=== PATIENT | male | born 1955 | race Caucasian/White ===

== ENCOUNTER 2021-05-10 11:23 | Inpatient (IN) ==
[2021-05-10] MEDS ORDERED: SODIUM CHLORIDE 0.9% 1000ML 2,000 ML IV ONE ×2 (11:27→11:42)
[2021-05-10 11:55] LABS: iSTAT Blood Urea Nitrogen 44 mg/dl (7-18); iSTAT Carbon Dioxide 7 mmol/L (24-31); iSTAT Chloride 104 mmol/L (101-112); iSTAT Creatinine 2.4 mg/dl (0.6-1.3); iSTAT Glucose > 700 mg/dl (70-99); iSTAT Hematocrit 44 % (42-52); iSTAT Ionized Calcium 1.42 mmol/l (1.12-1.32); iSTAT Sodium 132 mmol/L (135-144)
--- NOTE | 2021-05-10 11:56 | XRay Report ---
SINGLE VIEW CHEST CLINICAL HISTORY: Fall. FINDINGS: An AP, portable, supine chest radiographs are obtained. No prior studies are available for comparison at the time of dictation. The cardiomediastinal silhouette is unremarkable. Pneumomediasti num is observed. Bibasilar atelectasis is noted. No airspace consolidation or large pleural effusion is identified. No definite pneumothorax is seen. There are age indeterminant left-sided rib fractures which may be acute. IMPRESSION: 1. There is pneumomediastinum. 2. No definite pneumothorax is seen. 3. Age-indeterminate left-sided rib fractures may be acute. 4. No airspace consolidation or large pleural effusion is identified. ACT 112: Negative or not required by law. Electronically signed by: Zi Guido M.D. 05/10/2021 11:55 AM
[2021-05-10 11:57] LABS: Base Excess VBG -27.4 mEq/L; Oxygen Saturation VBG 78.3 %; pH VBG 6.88 (7.36-7.41)
--- NOTE | 2021-05-10 11:57 | XRay Report ---
XR pelvis 1-2V routine HISTORY: 65 years-old Male found down ams acute pelvic pain status post fall COMPARISON: None TECHNIQUE: Portable AP view of the pelvis FINDINGS: Mild to moderate osteoarthritis of the hips. No acute fracture, dislocation or avascular necrosis. Va scular calcifications. Degenerative changes of the imaged lumbar spine. IMPRESSION: No acute fracture. ACT 112: Negative or not required by law. The above report was generated using voice recognition software. It may contain grammatical, syntax o r spelling errors. Electronically signed by: Luigi Corcoran M.D. 05/10/2021 11:56 AM
[2021-05-10] MEDS ORDERED: SODIUM BICARB 8.4% INJ 50 MEQ/50 ML SYR IV STA ×2 (11:59→13:03)
[2021-05-10] MEDS ORDERED: CEFEPIME 2,000 MG/20 ML VIAL IV STA (12:01)
[2021-05-10] MEDS ORDERED: VANCOMYCIN HCL 1,250 MG in SODIUM CHLORIDE 0.9% 500 ML IV ONE (12:01)
[2021-05-10] MEDS ORDERED: VANCOMYCIN CONSULT ACTIVE PRN ×2 (12:01→15:33)
[2021-05-10 12:03] LABS: INR 1.1 (0.9-1.1); Partial Thromboplastin Ratio 1.5; Partial Thromboplastin Time 38.2 Seconds (21.0-31.0); Prothrombin Time 10.8 Seconds (9.0-12.0)
--- NOTE | 2021-05-10 12:05 | CT Scan Report ---
CT head/brain wo con CLINICAL HISTORY: 65 years-old Male with found down ams. Acutely altered mental status with fall TECHNIQUE: Multiple axial CT images of the head were obtained without contrast. A dose lowering tech nique was utilized adhering to the principles of ALARA. CT DOSE: 1780.74 mGycm COMPARISON: CT cervical spine of same day FINDINGS: Motion degraded exam. No acute intracranial hemorrhage, midline shift, intracranial mass, hydrocephal us, territorial ischemia or abnormal extra-axial collection. The lucent changes of the brain parenchy ma. The calvarium is intact. The paranasal sinuses, mastoid air cells, and middle ear cavities are clear . IMPRESSION: Motion degraded exam. No acute intracranial abnormality or calvarial fracture. ACT 112: Negative or not required by law. The above report was generated using voice recognition software. It may contain grammatical, syntax o r spelling errors. Electronically signed by: Luigi Corcoran M.D. 05/10/2021 12:04 PM
[2021-05-10 12:06] LABS: Chloride 94 mmol/L (98-107); Potassium 4.9 mmol/L (3.5-5.1); Sodium 130 mmol/L (136-145)
--- NOTE | 2021-05-10 12:09 | CT Scan Report ---
CT cervical spine wo con CLINICAL HISTORY: 65 years-old Male with found down ams. Acute neck injury status post fall COMPARISON: Head CT of same day.. TECHNIQUE: Multiple axial CT images of the cervical spine were obtained without contrast. A dose low ering technique was utilized adhering to the principles of ALARA. FINDINGS: Mild mid cervical dextroscoliosis. Multilevel intervertebral disc space narrowing, severe a t C6 or C7. 3 mm anterolisthesis C4 on C5 and C7 on T1 is likely secondary to chronic facet arthrosis . There is severe multilevel facet arthrosis with degenerative bony fusion of the right C2-C3 facets. Multilevel neural foraminal narrowing. No acute fracture or subluxation. Lung apices are clear. Calcified plaque of the carotid bulbs. No prevertebral edema. IMPRESSION: No acute cervical spine fracture or subluxation. ACT 112: Negative or not required by law. The above report was generated using voice recognition software. It may contain grammatical, syntax o r spelling errors. Electronically signed by: Luigi Corcoran M.D. 05/10/2021 12:08 PM
[2021-05-10] MEDS ORDERED: CARBOHYDRATES FOR HYPOGLYCEMIA PO PRN (12:15)
[2021-05-10] MEDS ORDERED: GLUCAGON FOR INJ 1 MG VIAL IM PRN (12:15)
[2021-05-10] MEDS ORDERED: GLUCOSE 40% GEL 15 GM TUBE PO PRN (12:15)
[2021-05-10] MEDS ORDERED: GLUCOSE 10 TABS/TUBE PO PRN (12:15)
[2021-05-10] MEDS ORDERED: DEXTROSE 50% 50 ML SYRINGE IV PRN (12:15)
[2021-05-10 12:25] LABS: Alanine Aminotransferase 29 (12-78); Albumin Level 3.9 gm/dl (3.4-5.0); Alkaline Phosphatase 118 U/L (45-117); Aspartate Aminotransferase 34 U/L (15-37); BUN Creatinine Ratio 13.7 (10-20); Bilirubin Direct 0.2 mg/dl (0-0.2); Bilirubin,Total 0.5 mg/dl (0.2-1); Blood Urea Nitrogen 42 mg/dl (7-18); Calcium 9.8 mg/dl (8.5-10.1); Carbon Dioxide 5 mmol/L (21-32); Creatine Kinase 280 U/L (39-308); Est GFR (African American) 23.6 ml/min; Est GFR (Non-African American) 20.3 ml/min; Glucose 1134 mg/dl (70-99); Magnesium 3.3 mg/dl (1.8-2.4); Total Protein 7.9 gm/dl (6.4-8.2); Troponin I < 0.015 ng/ml (0-0.045)
[2021-05-10] MEDS ORDERED: NovoLIN-R BOLUS FROM BAG IV ONE (12:30)
[2021-05-10] MEDS: INSULIN REGULAR 250 UNITS in SODIUM CHLORIDE 0.9% 247.5 ML IV SCH (12:32)
[2021-05-10] MEDS ORDERED: DEXTROSE 5% IV STA (12:36)
[2021-05-10] MEDS ORDERED: FOMEPIZOLE IV STA (12:36)
[2021-05-10 12:41] LABS: Eosinophils # (auto) 0.01 K/uL (0-0.5); Eosinophils % (auto) 0.1 %; Hematocrit (blood only) 44.6 % (42-52); Hemoglobin 14.4 g/dL (14.0-18.0); Immature Granulocytes # (auto) 0.03 K/uL (0.00-0.02); Immature Granulocytes % (auto) 0.3 %; Lymphocytes # (auto) 1.21 K/uL (1.2-3.4); Lymphocytes % (auto) 12.3 %; Mean Corpuscular Hemoglobin 31.6 pg (25-34); Mean Corpuscular Hgb Conc 32.3 g/dL (32-36); Monocytes # (auto) 1.52 K/uL (0.11-0.59); Monocytes % (auto) 15.5 %; Neutrophils # (auto) 7.04 K/uL (1.4-6.5); Neutrophils % (auto) 71.8 %; Platelet Count 131 K/uL (130-400); Red Blood Count 4.55 M/uL (4.7-6.1); White Blood Count 9.81 K/uL (4.8-10.8)
[2021-05-10 12:41] LABS: Appearance Urine Clear (Clear); Bacteria Urine Automated Negative (Negative); Bilirubin Urine Negative (Negative); Blood Urine 2+ (Negative); Color Urine Yellow; Epithelial Cell Urine Auto >30 /lpf (0-5); Glucose Urine UA 3+ (Negative); Ketones Urine 2+ (Negative); Leukocyte Esterase Urine Negative (Negative); Nitrite Urine Negative (Negative); Protein Urine 2+ (Negative); Specific Gravity Urine 1.024 (1.000-1.030); Urobilinogen Urine Negative (Negative)
[2021-05-10] MEDS ORDERED: LORazepam 1 MG/2 ML VIAL IV STA (12:41)
--- NOTE | 2021-05-10 12:42 | CT Scan Report ---
ABDOMEN AND PELVIS CT WITHOUT CONTRAST CT DOSE: 458.44 mGycm HISTORY: Acute abdominal trauma. The patient was found down and has acutely altered mental status. f ound down ams TECHNIQUE: Multiaxial CT images of the abdomen and pelvis were performed without contrast. A dose lo wering technique was utilized adhering to the principles of ALARA. COMPARISON STUDY: Chest radiograph of same day FINDINGS: Nondependent mild bibasilar groundglass densities of the lower lobes. Limited study secondary to uppe r extremity positioning, lack of significant intra-abdominal fat and lack of contrast. Artifact from telemetry leads also limits the study. The unenhanced spleen,, pancreas, adrenal glands and gallbladd er are unremarkable. There are several hepatic cysts measuring up to 11 mm. Subcentimeter hepatic hyp odensities are too small to characterize. There are least 3 nonobstructing calculi of the right kidney which measure up to 4 mm. 2 mm calculus of the inferior pole left kidney. No hydronephrosis or ureteral calculi identified. Mild to moderate circumferential wall thickening of the urinary bladder with prostamegaly. Atherosclerosis of the aort a. No adenopathy identified. Healing subacute appearing minimally displaced fracture of the anterolat eral left seventh and eighth ribs. IMPRESSION: 1. Limited exam as above. 2. Nondependent bibasilar groundglass densities are suspicious for an infectious or inflammatory pneu monitis. Atelectasis considered less likely. 3. Nonobstructing bilateral nephrolithiasis. 4. Healing subacute fractures of the anterolateral left seventh and eighth ribs. 5. Prostamegaly with suggested chronic bladder outlet obstruction. 6. Additional findings as above. ACT 112: Negative or not required by law. The above report was generated using voice recognition software. It may contain grammatical, syntax o r spelling errors. Electronically signed by: Luigi Corcoran M.D. 05/10/2021 12:41 PM
[2021-05-10 12:43] LABS: Echinocytes 1+
[2021-05-10] MEDS ORDERED: MULTI-VITAMIN INFUSION 10 ML, THIAMINE HCL 100 MG, FOLIC ACID 1 MG in SODIUM CHLORIDE 0... IV ONE (12:45)
[2021-05-10 12:59] LABS: Base Excess VBG -25.5 mEq/L; Oxygen Saturation VBG 61.3 %; pH VBG 6.91 (7.36-7.41)
[2021-05-10 13:06] LABS: Influenza A virus by PCR Negative (Neg); Influenza B virus by PCR Negative (Neg); RSV by PCR Negative (Neg)
[2021-05-10 13:27] LABS: Acetaminophen < 2 ug/ml (10-30)
[2021-05-10 13:28] LABS: Salicylate 6.9 mg/dl (2.8-20)
[2021-05-10 13:36] LABS: SARS CoV2 RNA(COVID-19) InHosp POSITIVE (Negative)
--- NOTE | 2021-05-10 13:37 | Emergency Department Note ---
History of Present Illness General Chief complaint: Hyperglycemia Time Seen by Provider: 05/10/21 11:27 Source: EMS History of Present Illness Provider complaint: Altered mental status hyperglycemia Onset (ago): unknown 65-year-old male presents emergency department via EMS for altered mental status and hypoglycemia. Per EMS, the patient called EMS after finding him on the ground at 0900 after she returned home from work. EMS reports they arrived and his vitals were stable and the patient was tachypneic and having a high blood s ugar. He states he is a ioe-mjlnmlc-mxmgnmhhk diabetic. Home Medications Medication Instructions Recorded Confirmed Type atorvastatin 40 mg tablet 40 mg PO DAILY 05/10/21 05/10/21 History glipizide 5 mg tablet, extended 5 mg PO DAILY 05/10/21 05/10/21 History release 24 hr metformin 500 mg tablet,extended 1,000 mg PO DAILY 05/10/21 05/10/21 History release 24 hr Allergies Allergy/AdvReac Type Severity Reaction Status Date / Time No Known Allergies Allergy Verified 05/10/21 13:25 Past Med/Surg History Medical History (Updated 05/10/21 @ 14:17 by Aminata Hinojosa PA-C) Diabetes No pertinent family history Surgical History (Updated 05/10/21 @ 13:39 by Wolf Garcia) No pertinent past surgical history Social History Smoking Status: Unknown if ever smoked Review of Systems Unobtainable due to reduced consciousness Physical Exam Vital Signs Vital Signs - 24 hr 05/10/21 11:25 05/10/21 11:31 05/10/21 11:45 Temperature 29.8 C L Temperature Source Rectal Pulse Rate 76 77 73 Pulse Rate from SpO2 Sensor 77 Respiratory Rate 10 L 12 15 Respiratory Effort / Characteristics Spontaneous Respiratory Depth Deep Blood Pressure 105/70 Blood Pressure Mean 81 Blood Pressure Position Lying Pulse Oximetry 100 100 Oxygen Delivery Method Room Air Room Air Sepsis Recent Fever Within 48 Hours No Sepsis New/Unexplained Change in Mental Status Yes Sepsis Action Taken by Nursing Physician Notified 05/10/21 12:00 05/10/21 12:15 05/10/21 12:30 Temperature 30.0 C L 30.0 C L Temperature Source Pulse Rate 72 83 Pulse Rate from SpO2 Sensor 67 75 78 Respiratory Rate 13 15 40 H Respiratory Effort / Characteristics Respiratory Depth Blood Pressure 99/75 L Blood Pressure Mean 83 Blood Pressure Position Pulse Oximetry 96 97 100 Oxygen Delivery Method Room Air Room Air Room Air Sepsis Recent Fever Within 48 Hours Sepsis New/Unexplained Change in Mental Status Sepsis Action Taken by Nursing 05/10/21 12:45 05/10/21 13:00 05/10/21 13:15 Temperature 30.3 C L 30.6 C L 30.9 C L Temperature Source Pulse Rate 78 78 80 Pulse Rate from SpO2 Sensor 78 78 81 Respiratory Rate 21 17 19 Respiratory Effort / Characteristics Respiratory Depth Blood Pressure 123/67 127/76 123/74 Blood Pressure Mean 85 93 90 Blood Pressure Position Pulse Oximetry 100 100 100 Oxygen Delivery Method Room Air Room Air Room Air Sepsis Recent Fever Within 48 Hours Sepsis New/Unexplained Change in Mental Status Sepsis Action Taken by Nursing 05/10/21 13:30 05/10/21 13:45 05/10/21 14:00 Temperature 31.2 C L 31.5 C L 31.7 C L Temperature Source Pulse Rate 86 89 89 Pulse Rate from SpO2 Sensor 86 89 89 Respiratory Rate 10 L 14 12 Respiratory Effort / Characteristics Respiratory Depth Blood Pressure 125/82 125/73 129/74 Blood Pressure Mean 96 90 92 Blood Pressure Position Pulse Oximetry 100 100 100 Oxygen Delivery Method Room Air Room Air Room Air Sepsis Recent Fever Within 48 Hours Sepsis New/Unexplained Change in Mental Status Sepsis Action Taken by Nursing 05/10/21 14:15 05/10/21 14:30 Temperature 31.9 C L 32.2 C L Temperature Source Pulse Rate 90 90 Pulse Rate from SpO2 Sensor 90 89 Respiratory Rate 14 12 Respiratory Effort / Characteristics Respiratory Depth Blood Pressure 128/79 133/72 Blood Pressure Mean 95 92 Blood Pressure Position Pulse Oximetry 100 100 Oxygen Delivery Method Room Air Room Air Sepsis Recent Fever Within 48 Hours Sepsis New/Unexplained Change in Mental Status Sepsis Action Taken by Nursing Physical Exam GENERAL: Disheveled distressed cachectic HENT: Exam performed. - Head: Normocephalic and atraumatic. - Right Ear: External ear normal. No mastoid tenderness. - Left Ear: External ear normal. No mastoid tenderness. - Mouth/Throat: The oropharynx is clear and moist. No trismus in the jaw. No dental abscesses or uvula swelling. No oropharyngeal exudate or tonsillar abscesses. EYES: Pupils are equal, round, and reactive to light. Right eye exhibits no discharge. Left eye exhibits no discharge. No scleral icterus. CV: Normal rate, regular rhythm, normal heart sounds and intact distal pulses. There is no peripheral edema. Palpable radial pulses bue. PULM/CHEST: Rhonchi bilaterally. ABD: The abdomen is soft. Hepatomegaly. MUSC/SKEL: Pelvis stable. NEURO: GCS eye subscore is 4. GCS verbal subscore is 1. GCS motor subscore is 4. SKIN: Cool to touch. Procedures FAST Exam FAST Exam 1: Fluid in Morison's pouch: No Fluid in Splenorenal Junction: No Fluid around bladder, Transverse view: No Fluid around bladder, Sagittal view: No Fluid in Pericardial Sac: No Gross Wall Motion Abnormality: No Study normal for this patient: Yes Images saved for further review: Yes Course Course 1127: The patient was evaluated in room A1. A complete history and physical exam was performed Cardiac monitoring: An order was placed for continuous cardiac monitoring. The monitor shows a rate of 80 with sinus rhythm Administered Medications Insulin Human Regular 250 (units/ Sodium Chloride) 250 mls @ 5.4 mls/hr IV .Q24H [facility]; Protocol Stop: 06/09/21 12:14 Last Admin: 05/10/21 12:32 Dose: 5.4 units/hr, 5.4 mls/hr Documented by: [id number] Cosigned by: [id number] Multivitamins 10 ml/ Thiamine HCl 100 mg/ Folic Acid 1 mg/Sodium Chloride 1,011.2 mls @ 126.4 mls/hr IV .Q8H ONE Stop: 05/10/21 20:44 Last Admin: 05/10/21 13:43 Dose: 126.4 mls/hr Documented by: [id number] Discontinued Medications Sodium Chloride (Nss 1000ml) 2,000 mls @ 999 mls/hr IV .Q2H1M ONE Stop: 05/10/21 13:27 Last Infusion: 05/10/21 14:11 Dose: 0 mls/hr Documented by: [id number] Admin: 05/10/21 12:10 Dose: 999 mls/hr Documented by: [id number] Vancomycin HCl 1,250 mg/ (Sodium Chloride) 525 mls @ 200 mls/hr IV NOW ONE Stop: 05/10/21 14:38 Last Admin: 05/10/21 13:20 Dose: 200 mls/hr Documented by: [id number] Cefepime HCl (Maxipime) 2,000 mg in 20 mls @ 5 mls/min IV NOW STA; Protocol Stop: 05/10/21 12:04 Last Admin: 05/10/21 12:42 Dose: 5 mls/min Documented by: [id number] Fomepizole 0.8 gm/ Dextrose 100.8 mls @ 200 mls/hr IV NOW STA Stop: 05/10/21 13:06 Last Infusion: 05/10/21 13:25 Dose: 0 mls/hr Documented by: [id number] Admin: 05/10/21 12:54 Dose: 200 mls/hr Documented by: [id number] Lorazepam (Ativan) 1 mg in 2 mls @ 2 mls/min IV NOW STA Stop: 05/10/21 12:42 Last Admin: 05/10/21 12:55 Dose: 2 mls/min Documented by: [id number] Insulin Human Regular (Novolin-R Bolus From Bag) 5 units IV ONE ONE Stop: 05/10/21 12:31 Last Admin: 05/10/21 12:38 Dose: 5 units Documented by: [id number] Cosigned by: [id number] Sodium Bicarbonate (Sodium Bicarb 8.4% Inj 50 Meq/50 Ml Syr) 50 meq IV NOW STA Stop: 05/10/21 12:00 Last Admin: 05/10/21 12:15 Dose: 50 meq Documented by: [id number] Sodium Bicarbonate (Sodium Bicarb 8.4% Inj 50 Meq/50 Ml Syr) 50 meq IV NOW STA Stop: 05/10/21 13:04 Last Admin: 05/10/21 13:20 Dose: 50 meq Documented by: [id number] Critical Care Time Critical Care Time: Yes Total Critical Care Time: 120 I have personally spent greater than 120 minutes of critical care time in the direct management of this patient. This includes bedside care, interpretation of diagnostic studies, and testing, discussion with consultants, patient, and family members, and other required patient management activities. This 120 minutes is in excess of all separately billable procedures. Medical Decision Making Laboratory Data Result diagrams: 05/10/21 11:36 05/10/21 13:53 Lab Results 05/10/21 05/10/21 05/10/21 Range/Units 11:29 11:36 11:36 WBC 9.81 (4.8-10.8) K/uL RBC 4.55 L (4.7-6.1) M/uL Hgb 14.4 (14.0-18.0) g/dL POC Hgb (14.0-18.0) g/dl Hct 44.6 (42-52) % POC Hct (42-52) % MCV 98.0 (80-100) fL MCH 31.6 (25-34) pg MCHC 32.3 (32-36) g/dL Plt Count 131 (130-400) K/uL Immature Gran % (Auto) 0.3 % Neut % (Auto) 71.8 % Lymph % (Auto) 12.3 % Garvin % (Auto) 15.5 % Eos % (Auto) 0.1 % Baso % (Auto) 0.0 % Neut # (Auto) 7.04 H (1.4-6.5) K/uL Lymph # (Auto) 1.21 (1.2-3.4) K/uL Garvin # (Auto) 1.52 H (0.11-0.59) K/uL Eos # (Auto) 0.01 (0-0.5) K/uL Baso # (Auto) 0.00 (0-0.2) K/uL Immature Gran # (Auto) 0.03 H (0.00-0.02) K/uL Echinocytes 1+ PT 10.8 (9.0-12.0) Seconds INR 1.1 (0.9-1.1) APTT 38.2 H (21.0-31.0) Seconds PTT Ratio 1.5 VBG pH (7.36-7.41) VBG pCO2 (38-50) mmHg VBG pO2 mmHg VBG HCO3 mmol/L VBG O2 Saturation % VBG Base Excess mEq/L Barometric Pressure mm/Hg POC Sodium (135-144) mmol/L Sodium (136-145) mmol/L POC Potassium (3.3-5.0) mmol/L Potassium (3.5-5.1) mmol/L POC Chloride (101-112) mmol/L Chloride (98-107) mmol/L Carbon Dioxide (21-32) mmol/L POC Total CO2 (24-31) mmol/L Anion Gap (3-11) POC Anion Gap (16-25) mmol/L POC BUN (7-18) mg/dl BUN (7-18) mg/dl Creatinine (0.6-1.4) mg/dl POC Creatinine (0.6-1.3) mg/dl Est Cr Clr Drug Dosing Est GFR ( Amer) ml/min Est GFR (Non-Af Amer) ml/min BUN/Creatinine Ratio (10-20) Glucose (70-99) mg/dl POC Glucose > 600 H* (70-99) mg/dl POC Glucose (other) (70-99) mg/dl Osmolality (280-300) mOsm/kg Lactate (0.4-2.0) mmol/L Calcium (8.5-10.1) mg/dl POC Ioniz Calcium Ariana (1.12-1.32) mmol/l Phosphorus (2.5-4.9) mg/dl Magnesium (1.8-2.4) mg/dl Total Bilirubin (0.2-1) mg/dl Direct Bilirubin (0-0.2) mg/dl AST (15-37) U/L ALT (12-78) Alkaline Phosphatase (45-117) U/L Total Creatine Kinase (39-308) U/L Troponin I (0-0.045) ng/ml Total Protein (6.4-8.2) gm/dl Albumin (3.4-5.0) gm/dl Lipase (73-393) U/L Beta-Hydroxybutyric Acd Urine Color Urine Appearance (Clear) Urine pH (4.5-7.5) Ur Specific [place] (1.000-1.030) Urine Protein (Negative) Urine Glucose (UA) (Negative) Urine Ketones (Negative) Urine Blood (Negative) Urine Nitrite (Negative) Urine Bilirubin (Negative) Urine Urobilinogen (Negative) Ur Leukocyte Esterase (Negative) Urine WBC (Auto) (0-5) /hpf Urine RBC (Auto) (0-4) /hpf U Hyaline Cast (Auto) (0-5) /lpf U Epithel Cells (Auto) (0-5) /lpf Urine Bacteria (Auto) (Negative) Ur Renal Epithelial Cell Salicylates (2.8-20) mg/dl Acetaminophen (10-30) ug/ml Ethyl Alcohol mg/dL (0-3) mg/dl SARS-CoV-2 (PCR) (Negative) Influenza Type A (PCR) (Neg) Influenza Type B (PCR) (Neg) RSV (RT-PCR) (Neg) 05/10/21 05/10/21 05/10/21 Range/Units 11:36 11:36 11:36 WBC (4.8-10.8) K/uL RBC (4.7-6.1) M/uL Hgb (14.0-18.0) g/dL POC Hgb (14.0-18.0) g/dl Hct (42-52) % POC Hct (42-52) % MCV (80-100) fL MCH (25-34) pg MCHC (32-36) g/dL Plt Count (130-400) K/uL Immature Gran % (Auto) % Neut % (Auto) % Lymph % (Auto) % Garvin % (Auto) % Eos % (Auto) % Baso % (Auto) % Neut # (Auto) (1.4-6.5) K/uL Lymph # (Auto) (1.2-3.4) K/uL Garvin # (Auto) (0.11-0.59) K/uL Eos # (Auto) (0-0.5) K/uL Baso # (Auto) (0-0.2) K/uL Immature Gran # (Auto) (0.00-0.02) K/uL Echinocytes PT (9.0-12.0) Seconds INR (0.9-1.1) APTT (21.0-31.0) Seconds PTT Ratio VBG pH 6.88 L (7.36-7.41) VBG pCO2 30 L (38-50) mmHg VBG pO2 51 mmHg VBG HCO3 5 mmol/L VBG O2 Saturation 78.3 % VBG Base Excess -27.4 mEq/L Barometric Pressure 744.6 mm/Hg POC Sodium (135-144) mmol/L Sodium 130 L (136-145) mmol/L POC Potassium (3.3-5.0) mmol/L Potassium 4.9 (3.5-5.1) mmol/L POC Chloride (101-112) mmol/L Chloride 94 L (98-107) mmol/L Carbon Dioxide 5 L* (21-32) mmol/L POC Total CO2 (24-31) mmol/L Anion Gap 31.0 H (3-11) POC Anion Gap (16-25) mmol/L POC BUN (7-18) mg/dl BUN 42 H (7-18) mg/dl Creatinine 3.08 H (0.6-1.4) mg/dl POC Creatinine (0.6-1.3) mg/dl Est Cr Clr Drug Dosing Not Reportable Est GFR ( Amer) 23.6 ml/min Est GFR (Non-Af Amer) 20.3 ml/min BUN/Creatinine Ratio 13.7 (10-20) Glucose 1134 H* (70-99) mg/dl POC Glucose (70-99) mg/dl POC Glucose (other) (70-99) mg/dl Osmolality (280-300) mOsm/kg Lactate (0.4-2.0) mmol/L Calcium 9.8 (8.5-10.1) mg/dl POC Ioniz Calcium Ariana (1.12-1.32) mmol/l Phosphorus (2.5-4.9) mg/dl Magnesium 3.3 H (1.8-2.4) mg/dl Total Bilirubin 0.5 (0.2-1) mg/dl Direct Bilirubin 0.2 (0-0.2) mg/dl AST 34 (15-37) U/L ALT 29 (12-78) Alkaline Phosphatase 118 H (45-117) U/L Total Creatine Kinase 280 (39-308) U/L Troponin I < 0.015 (0-0.045) ng/ml Total Protein 7.9 (6.4-8.2) gm/dl Albumin 3.9 (3.4-5.0) gm/dl Lipase 7153 H (73-393) U/L Beta-Hydroxybutyric Acd TNP Urine Color Urine Appearance (Clear) Urine pH (4.5-7.5) Ur Specific [place] (1.000-1.030) Urine Protein (Negative) Urine Glucose (UA) (Negative) Urine Ketones (Negative) Urine Blood (Negative) Urine Nitrite (Negative) Urine Bilirubin (Negative) Urine Urobilinogen (Negative) Ur Leukocyte Esterase (Negative) Urine WBC (Auto) (0-5) /hpf Urine RBC (Auto) (0-4) /hpf U Hyaline Cast (Auto) (0-5) /lpf U Epithel Cells (Auto) (0-5) /lpf Urine Bacteria (Auto) (Negative) Ur Renal Epithelial Cell Salicylates (2.8-20) mg/dl Acetaminophen (10-30) ug/ml Ethyl Alcohol mg/dL (0-3) mg/dl SARS-CoV-2 (PCR) (Negative) Influenza Type A (PCR) (Neg) Influenza Type B (PCR) (Neg) RSV (RT-PCR) (Neg) 05/10/21 05/10/21 05/10/21 Range/Units 11:36 11:36 11:36 WBC (4.8-10.8) K/uL RBC (4.7-6.1) M/uL Hgb (14.0-18.0) g/dL POC Hgb (14.0-18.0) g/dl Hct (42-52) % POC Hct (42-52) % MCV (80-100) fL MCH (25-34) pg MCHC (32-36) g/dL Plt Count (130-400) K/uL Immature Gran % (Auto) % Neut % (Auto) % Lymph % (Auto) % Garvin % (Auto) % Eos % (Auto) % Baso % (Auto) % Neut # (Auto) (1.4-6.5) K/uL Lymph # (Auto) (1.2-3.4) K/uL Garvin # (Auto) (0.11-0.59) K/uL Eos # (Auto) (0-0.5) K/uL Baso # (Auto) (0-0.2) K/uL Immature Gran # (Auto) (0.00-0.02) K/uL Echinocytes PT (9.0-12.0) Seconds INR (0.9-1.1) APTT (21.0-31.0) Seconds PTT Ratio VBG pH (7.36-7.41) VBG pCO2 (38-50) mmHg VBG pO2 mmHg VBG HCO3 mmol/L VBG O2 Saturation % VBG Base Excess mEq/L Barometric Pressure mm/Hg POC Sodium (135-144) mmol/L Sodium (136-145) mmol/L POC Potassium (3.3-5.0) mmol/L Potassium (3.5-5.1) mmol/L POC Chloride (101-112) mmol/L Chloride (98-107) mmol/L Carbon Dioxide (21-32) mmol/L POC Total CO2 (24-31) mmol/L Anion Gap (3-11) POC Anion Gap (16-25) mmol/L POC BUN (7-18) mg/dl BUN (7-18) mg/dl Creatinine (0.6-1.4) mg/dl POC Creatinine (0.6-1.3) mg/dl Est Cr Clr Drug Dosing Est GFR ( Amer) ml/min Est GFR (Non-Af Amer) ml/min BUN/Creatinine Ratio (10-20) Glucose (70-99) mg/dl POC Glucose (70-99) mg/dl POC Glucose (other) (70-99) mg/dl Osmolality 387 H* (280-300) mOsm/kg Lactate 1.4 (0.4-2.0) mmol/L Calcium (8.5-10.1) mg/dl POC Ioniz Calcium Ariana (1.12-1.32) mmol/l Phosphorus (2.5-4.9) mg/dl Magnesium (1.8-2.4) mg/dl Total Bilirubin (0.2-1) mg/dl Direct Bilirubin (0-0.2) mg/dl AST (15-37) U/L ALT (12-78) Alkaline Phosphatase (45-117) U/L Total Creatine Kinase (39-308) U/L Troponin I (0-0.045) ng/ml Total Protein (6.4-8.2) gm/dl Albumin (3.4-5.0) gm/dl Lipase (73-393) U/L Beta-Hydroxybutyric Acd Urine Color Urine Appearance (Clear) Urine pH (4.5-7.5) Ur Specific [place] (1.000-1.030) Urine Protein (Negative) Urine Glucose (UA) (Negative) Urine Ketones (Negative) Urine Blood (Negative) Urine Nitrite (Negative) Urine Bilirubin (Negative) Urine Urobilinogen (Negative) Ur Leukocyte Esterase (Negative) Urine WBC (Auto) (0-5) /hpf Urine RBC (Auto) (0-4) /hpf U Hyaline Cast (Auto) (0-5) /lpf U Epithel Cells (Auto) (0-5) /lpf Urine Bacteria (Auto) (Negative) Ur Renal Epithelial Cell Salicylates 6.9 (2.8-20) mg/dl Acetaminophen < 2 L (10-30) ug/ml Ethyl Alcohol mg/dL (0-3) mg/dl SARS-CoV-2 (PCR) (Negative) Influenza Type A (PCR) (Neg) Influenza Type B (PCR) (Neg) RSV (RT-PCR) (Neg) 05/10/21 05/10/21 05/10/21 Range/Units 11:37 11:41 12:10 WBC (4.8-10.8) K/uL RBC (4.7-6.1) M/uL Hgb (14.0-18.0) g/dL POC Hgb 15.0 (14.0-18.0) g/dl Hct (42-52) % POC Hct 44 (42-52) % MCV (80-100) fL MCH (25-34) pg MCHC (32-36) g/dL Plt Count (130-400) K/uL Immature Gran % (Auto) % Neut % (Auto) % Lymph % (Auto) % Garvin % (Auto) % Eos % (Auto) % Baso % (Auto) % Neut # (Auto) (1.4-6.5) K/uL Lymph # (Auto) (1.2-3.4) K/uL Garvin # (Auto) (0.11-0.59) K/uL Eos # (Auto) (0-0.5) K/uL Baso # (Auto) (0-0.2) K/uL Immature Gran # (Auto) (0.00-0.02) K/uL Echinocytes PT (9.0-12.0) Seconds INR (0.9-1.1) APTT (21.0-31.0) Seconds PTT Ratio VBG pH (7.36-7.41) VBG pCO2 (38-50) mmHg VBG pO2 mmHg VBG HCO3 mmol/L VBG O2 Saturation % VBG Base Excess mEq/L Barometric Pressure mm/Hg POC Sodium 132 L (135-144) mmol/L Sodium (136-145) mmol/L POC Potassium 5.0 (3.3-5.0) mmol/L Potassium (3.5-5.1) mmol/L POC Chloride 104 (101-112) mmol/L Chloride (98-107) mmol/L Carbon Dioxide (21-32) mmol/L POC Total CO2 7 L* (24-31) mmol/L Anion Gap (3-11) POC Anion Gap 27.0 H (16-25) mmol/L POC BUN 44 H (7-18) mg/dl BUN (7-18) mg/dl Creatinine (0.6-1.4) mg/dl POC Creatinine 2.4 H (0.6-1.3) mg/dl Est Cr Clr Drug Dosing Est GFR ( Amer) ml/min Est GFR (Non-Af Amer) ml/min BUN/Creatinine Ratio (10-20) Glucose (70-99) mg/dl POC Glucose (70-99) mg/dl POC Glucose (other) > 700 H* (70-99) mg/dl Osmolality (280-300) mOsm/kg Lactate (0.4-2.0) mmol/L Calcium (8.5-10.1) mg/dl POC Ioniz Calcium Ariana 1.42 H (1.12-1.32) mmol/l Phosphorus (2.5-4.9) mg/dl Magnesium (1.8-2.4) mg/dl Total Bilirubin (0.2-1) mg/dl Direct Bilirubin (0-0.2) mg/dl AST (15-37) U/L ALT (12-78) Alkaline Phosphatase (45-117) U/L Total Creatine Kinase (39-308) U/L Troponin I (0-0.045) ng/ml Total Protein (6.4-8.2) gm/dl Albumin (3.4-5.0) gm/dl Lipase (73-393) U/L Beta-Hydroxybutyric Acd Urine Color Urine Appearance (Clear) Urine pH (4.5-7.5) Ur Specific [place] (1.000-1.030) Urine Protein (Negative) Urine Glucose (UA) (Negative) Urine Ketones (Negative) Urine Blood (Negative) Urine Nitrite (Negative) Urine Bilirubin (Negative) Urine Urobilinogen (Negative) Ur Leukocyte Esterase (Negative) Urine WBC (Auto) (0-5) /hpf Urine RBC (Auto) (0-4) /hpf U Hyaline Cast (Auto) (0-5) /lpf U Epithel Cells (Auto) (0-5) /lpf Urine Bacteria (Auto) (Negative) Ur Renal Epithelial Cell Salicylates (2.8-20) mg/dl Acetaminophen (10-30) ug/ml Ethyl Alcohol mg/dL < 3.0 (0-3) mg/dl SARS-CoV-2 (PCR) POSITIVE A* (Negative) Influenza Type A (PCR) Negative (Neg) Influenza Type B (PCR) Negative (Neg) RSV (RT-PCR) Negative (Neg) 05/10/21 05/10/21 05/10/21 Range/Units 12:10 12:41 13:29 WBC (4.8-10.8) K/uL RBC (4.7-6.1) M/uL Hgb (14.0-18.0) g/dL POC Hgb (14.0-18.0) g/dl Hct (42-52) % POC Hct (42-52) % MCV (80-100) fL MCH (25-34) pg MCHC (32-36) g/dL Plt Count (130-400) K/uL Immature Gran % (Auto) % Neut % (Auto) % Lymph % (Auto) % [place]vin % (Auto) % Eos % (Auto) % Baso % (Auto) % Neut # (Auto) (1.4-6.5) K/uL Lymph # (Auto) (1.2-3.4) K/uL Garvin # (Auto) (0.11-0.59) K/uL Eos # (Auto) (0-0.5) K/uL Baso # (Auto) (0-0.2) K/uL Immature Gran # (Auto) (0.00-0.02) K/uL Echinocytes PT (9.0-12.0) Seconds INR (0.9-1.1) APTT (21.0-31.0) Seconds PTT Ratio VBG pH 6.91 L (7.36-7.41) VBG pCO2 33 L (38-50) mmHg VBG pO2 38 mmHg VBG HCO3 7 mmol/L VBG O2 Saturation 61.3 % VBG Base Excess -25.5 mEq/L Barometric Pressure 744.1 mm/Hg POC Sodium (135-144) mmol/L Sodium (136-145) mmol/L POC Potassium (3.3-5.0) mmol/L Potassium (3.5-5.1) mmol/L POC Chloride (101-112) mmol/L Chloride (98-107) mmol/L Carbon Dioxide (21-32) mmol/L POC Total CO2 (24-31) mmol/L Anion Gap (3-11) POC Anion Gap (16-25) mmol/L POC BUN (7-18) mg/dl BUN (7-18) mg/dl Creatinine (0.6-1.4) mg/dl POC Creatinine (0.6-1.3) mg/dl Est Cr Clr Drug Dosing Est GFR ( Amer) ml/min Est GFR (Non-Af Amer) ml/min BUN/Creatinine Ratio (10-20) Glucose (70-99) mg/dl POC Glucose > 600 H* (70-99) mg/dl POC Glucose (other) (70-99) mg/dl Osmolality (280-300) mOsm/kg Lactate (0.4-2.0) mmol/L Calcium (8.5-10.1) mg/dl POC Ioniz Calcium Ariana (1.12-1.32) mmol/l Phosphorus (2.5-4.9) mg/dl Magnesium (1.8-2.4) mg/dl Total Bilirubin (0.2-1) mg/dl Direct Bilirubin (0-0.2) mg/dl AST (15-37) U/L ALT (12-78) Alkaline Phosphatase (45-117) U/L Total Creatine Kinase (39-308) U/L Troponin I (0-0.045) ng/ml Total Protein (6.4-8.2) gm/dl Albumin (3.4-5.0) gm/dl Lipase (73-393) U/L Beta-Hydroxybutyric Acd Urine Color Yellow Urine Appearance Clear (Clear) Urine pH 5.0 (4.5-7.5) Ur Specific [place] 1.024 (1.000-1.030) Urine Protein 2+ H (Negative) Urine Glucose (UA) 3+ H (Negative) Urine Ketones 2+ H (Negative) Urine Blood 2+ H (Negative) Urine Nitrite Negative (Negative) Urine Bilirubin Negative (Negative) Urine Urobilinogen Negative (Negative) Ur Leukocyte Esterase Negative (Negative) Urine WBC (Auto) 1-5 (0-5) /hpf Urine RBC (Auto) 5-10 H (0-4) /hpf U Hyaline Cast (Auto) 1-5 (0-5) /lpf U Epithel Cells (Auto) >30 H (0-5) /lpf Urine Bacteria (Auto) Negative (Negative) Ur Renal Epithelial Cell Not Reportable Salicylates (2.8-20) mg/dl Acetaminophen (10-30) ug/ml Ethyl Alcohol mg/dL (0-3) mg/dl SARS-CoV-2 (PCR) (Negative) Influenza Type A (PCR) (Neg) Influenza Type B (PCR) (Neg) RSV (RT-PCR) (Neg) 05/10/21 Range/Units 13:53 WBC (4.8-10.8) K/uL RBC (4.7-6.1) M/uL Hgb (14.0-18.0) g/dL POC Hgb (14.0-18.0) g/dl Hct (42-52) % POC Hct (42-52) % MCV (80-100) fL MCH (25-34) pg MCHC (32-36) g/dL Plt Count (130-400) K/uL Immature Gran % (Auto) % Neut % (Auto) % Lymph % (Auto) % Garvin % (Auto) % Eos % (Auto) % Baso % (Auto) % Neut # (Auto) (1.4-6.5) K/uL Lymph # (Auto) (1.2-3.4) K/uL Garvin # (Auto) (0.11-0.59) K/uL Eos # (Auto) (0-0.5) K/uL Baso # (Auto) (0-0.2) K/uL Immature Gran # (Auto) (0.00-0.02) K/uL Echinocytes PT (9.0-12.0) Seconds INR (0.9-1.1) APTT (21.0-31.0) Seconds PTT Ratio VBG pH (7.36-7.41) VBG pCO2 (38-50) mmHg VBG pO2 mmHg VBG HCO3 mmol/L VBG O2 Saturation % VBG Base Excess mEq/L Barometric Pressure mm/Hg POC Sodium (135-144) mmol/L Sodium 141 D (136-145) mmol/L POC Potassium (3.3-5.0) mmol/L Potassium 3.6 D (3.5-5.1) mmol/L POC Chloride (101-112) mmol/L Chloride 103 (98-107) mmol/L Carbon Dioxide 5 L* (21-32) mmol/L POC Total CO2 (24-31) mmol/L Anion Gap 33.0 H (3-11) POC Anion Gap (16-25) mmol/L POC BUN (7-18) mg/dl BUN 43 H (7-18) mg/dl Creatinine 2.76 H D (0.6-1.4) mg/dl POC Creatinine (0.6-1.3) mg/dl Est Cr Clr Drug Dosing Not Reportable Est GFR ( Amer) 26.9 ml/min Est GFR (Non-Af Amer) 23.2 ml/min BUN/Creatinine Ratio 15.7 (10-20) Glucose 952 H* (70-99) mg/dl POC Glucose (70-99) mg/dl POC Glucose (other) (70-99) mg/dl Osmolality (280-300) mOsm/kg Lactate (0.4-2.0) mmol/L Calcium 8.6 (8.5-10.1) mg/dl POC Ioniz Calcium Ariana (1.12-1.32) mmol/l Phosphorus 8.1 H (2.5-4.9) mg/dl Magnesium 2.7 H (1.8-2.4) mg/dl Total Bilirubin (0.2-1) mg/dl Direct Bilirubin (0-0.2) mg/dl AST (15-37) U/L ALT (12-78) Alkaline Phosphatase (45-117) U/L Total Creatine Kinase (39-308) U/L Troponin I (0-0.045) ng/ml Total Protein (6.4-8.2) gm/dl Albumin (3.4-5.0) gm/dl Lipase (73-393) U/L Beta-Hydroxybutyric Acd Urine Color Urine Appearance (Clear) Urine pH (4.5-7.5) Ur Specific [place] (1.000-1.030) Urine Protein (Negative) Urine Glucose (UA) (Negative) Urine Ketones (Negative) Urine Blood (Negative) Urine Nitrite (Negative) Urine Bilirubin (Negative) Urine Urobilinogen (Negative) Ur Leukocyte Esterase (Negative) Urine WBC (Auto) (0-5) /hpf Urine RBC (Auto) (0-4) /hpf U Hyaline Cast (Auto) (0-5) /lpf U Epithel Cells (Auto) (0-5) /lpf Urine Bacteria (Auto) (Negative) Ur Renal Epithelial Cell Salicylates (2.8-20) mg/dl Acetaminophen (10-30) ug/ml Ethyl Alcohol mg/dL (0-3) mg/dl SARS-CoV-2 (PCR) (Negative) Influenza Type A (PCR) (Neg) Influenza Type B (PCR) (Neg) RSV (RT-PCR) (Neg) Imaging Data Radiologist's Impression: Cervical Spine CT 05/10/21 11:27 CT cervical spine wo con CLINICAL HISTORY: 65 years-old Male with found down ams. Acute neck injury status post fall COMPARISON: Head CT of same day.. TECHNIQUE: Multiple axial CT images of the cervical spine were obtained without contrast. A dose lowering technique was utilized adhering to the principles of ALARA. FINDINGS: Mild mid cervical dextroscoliosis. Multilevel intervertebral disc space narrowing, severe at C6 or C7. 3 mm anterolisthesis C4 on C5 and C7 on T1 is likely secondary to chronic facet arthrosis. There is severe multilevel facet arthrosis with degenerative bony fusion of the right C2-C3 facets. Multilevel neural foraminal narrowing. No acute fracture or subluxation. Lung apices are clear. Calcified plaque of the carotid bulbs. No prevertebral edema. IMPRESSION: No acute cervical spine fracture or subluxation. ACT 112: Negative or not required by law. The above report was generated using voice recognition software. It may contain grammatical, syntax or spelling errors. Electronically signed by: Luigi Corcoran M.D. 05/10/2021 12:08 PM Chest X-Ray 05/10/21 11:27 SINGLE VIEW CHEST CLINICAL HISTORY: Fall. FINDINGS: An AP, portable, supine chest radiographs are obtained. No prior studies are available for comparison at the time of dictation. The cardiomediastinal silhouette is unremarkable. Pneumomediastinum is observed. Bibasilar atelectasis is noted. No airspace consolidation or large pleural effusion is identified. No definite pneumothorax is seen. There are age inde terminant left-sided rib fractures which may be acute. IMPRESSION: 1. There is pneumomediastinum. 2. No definite pneumothorax is seen. 3. Age-indeterminate left-sided rib fractures may be acute. 4. No airspace consolidation or large pleural effusion is identified. ACT 112: Negative or not required by law. Electronically signed by: Zi Guido M.D. 05/10/2021 11:[address] 05/10/21 11:27 CT head/brain wo con CLINICAL HISTORY: 65 years-old Male with found down ams. Acutely altered mental status with fall TECHNIQUE: Multiple axial CT images of the head were obtained without contrast. A dose lowering technique was utilized adhering to the principles of ALARA. CT DOSE: 1780.74 mGycm COMPARISON: CT cervical spine of same day FINDINGS: Motion degraded exam. No acute intracranial hemorrhage, midline shift, intracranial mass, hydrocephalus, territorial ischemia or abnormal extra-axial collection. The lucent changes of the brain parenchyma. The calvarium is intact. The paranasal sinuses, mastoid air cells, and middle ear cavities are clear. IMPRESSION: Motion degraded exam. No acute intracranial abnormality or calvarial fracture. ACT 112: Negative or not required by law. The above report was generated using voice recognition software. It may contain grammatical, syntax or spelling errors. Electronically signed by: Luigi Corcoran M.D. 05/10/2021 12:04 PM Pelvis X-Ray 05/10/21 11:27 XR pelvis 1-2V routine HISTORY: 65 years-old Male found down ams acute pelvic pain status post fall COMPARISON: None TECHNIQUE: Portable AP view of the pelvis FINDINGS: Mild to moderate osteoarthritis of the hips. No acute fracture, dislocation or avascular necrosis. Vascular calcifications. Degenerative changes of the imaged lumbar spine. IMPRESSION: No acute fracture. ACT 112: Negative or not required by law. The above report was generated using voice recognition software. It may contain grammatical, syntax or spelling errors. Electronically signed by: Luigi Corcoran M.D. 05/10/2021 11:56 AM Abdomen/Pelvis CT 05/10/21 11:[address] WITHOUT CONTRAST CT DOSE: 458.44 mGycm HISTORY: Acute abdominal trauma. The patient was found down and has acutely altered mental status. found down ams TECHNIQUE: Multiaxial CT images of the abdomen and pelvis were performed without contrast. A dose lowering technique was utilized adhering to the principles of ALARA. COMPARISON STUDY: Chest radiograph of same day FINDINGS: Nondependent mild bibasilar groundglass densities of the lower lobes. Limited study secondary to upper extremity positioning, lack of significant intra- abdominal fat and lack of contrast. Artifact from telemetry leads also limits the study. The unenhanced spleen,, pancreas, adrenal glands and gallbladder are unremarkable. There are several hepatic cysts measuring up to 11 mm. Subcentimeter hepatic hypodensities are too small to characterize. There are least 3 nonobstructing calculi of the right kidney which measure up to 4 mm. 2 mm calculus of the inferior pole left kidney. No hydronephrosis or ureteral calculi identified. Mild to moderate circumferential wall thickening of the urinary bladder with prostamegaly. Atherosclerosis of the aorta. No adenopathy identified. Healing subacute appearing minimally displaced fracture of the anterolateral left seventh and eighth ribs. IMPRESSION: 1. Limited exam as above. 2. Nondependent bibasilar groundglass densities are suspicious for an infectious or inflammatory pneumonitis. Atelectasis considered less likely. 3. Nonobstructing bilateral nephrolithiasis. 4. Healing subacute fractures of the anterolateral left seventh and eighth ribs. 5. Prostamegaly with suggested chronic bladder outlet obstruction. 6. Additional findings as above. ACT 112: Negative or not required by law. The above report was generated using voice recognition software. It may contain grammatical, syntax or spelling errors. Electronically signed by: Luigi Corcoran M.D. 05/10/2021 12:41 PM ECG Data Indication: + altered mental status Rate (beats per minute): 77 Rhythm: + normal sinus ECG Intervals/blocks: + First degree AV block, + Normal QRS and + Normal QT-c ECG ST segments: + Normal ST segments ECG Findings: + Peaked T waves MDM Narrative The patient was evaluated in room A1. A complete history and physical exam was performed Cardiac monitoring: An order was placed for continuous cardiac monitoring. The monitor shows a rate of 80 with sinus rhythm Patient was immediately seen on arrival in the emergency department in the resuscitation bay A1. Patient's GCS of 9. FAST exam negative. Bedside x-rays conducted viewed by me which were negative. Patient was placed in c-collar. Patient's rectal temperature showed hypothermia. Patient was started on a bear hugger. [id number] glucose was too high to be measured. Warm IV fluids 2 L normal saline started for the patient. I-STAT ordered for the patient which showed an elevated creatinine and a glucose that was too high to measure. Trauma scans ordered for the patient without contrast given the elevated creatinine and that the patient was found on the ground. Family, arrived shortly after. She stated that the patient was found down on the ground at 9 AM when she returned home from her overnight shift as a nurse. She does state that the patient has a drinking problem. When asked how much he drinks a day, she states she cannot keep count, she beer he drinks a day. Patient taken to CT for trauma scans. On arrival back from CT bear hugger was reapplied. Pineda catheter with continuous temperature probe started on the patient. Labs showed a venous pH of 6.88 with a venous PCO2 of 30 bicarb of 5. 1 amp of bicarb ordered for the patient. Labs also showed a serum glucose of 1134 with a creatinine of 3.08. Bicarb 5. Anion gap of 31. Serum osmolality is 387. Osmolar gap calculated to be approximately 50. IV insulin started with a 5 unit insulin bolus and 0.1 units/kg/h insulin drip. Patient remained having a GCS of 9 (E: 4, V: 1, M: 4). Serum lipase elevated at 7153. Empiric antibiotics cefepime and vancomycin administered to the patient. There was concern given the increased osmolar and increased anion gap as well as negative alcohol level that the patient might have ingested a toxic alcohol. I asked the family specifically about this and they stated that there is no way that the patient could have access to any antifreeze or windshield wiper fluid because he does not leave the house and there is none in the house. I explained to the family that the patient is critically ill and he will be needed to be admitted to the ICU most likely. Salicylate and Tylenol level ordered for the patient. Discussed the case with Aminata huston [facility] hospitalist who asked I speak with Dr. Alves. Spoke with Dr. Alves who recommends to continue aggressive IV hy dration. Banana bag ordered for the patient. Patient's GCS remains 9, will not intubate at this time. Dr. Alves is in agreement. Patient was placed on seizure precautions. Patient was becoming more agitated and given Ativan 1 mg which improved his clinical status. GCS remained 9 after the Ativan and the patient's blood pressure remained stable as well as oxygen saturations. Repeat VBG showed a venous pH of 6.91 and a venous PCO2 of 33. Repeat bicarb amp was ordered for the patient. Patient tested positive for COVID-19. Impression & Plan DKA (diabetic ketoacidosis), HHS (hypothenar hammer syndrome), Hypothermia, Pancreatitis, COVID Discharge Plan Visit Data Chief Complaint: Hyperglycemia ED Provider: Wolf Garcia Discharge Problem: DKA (diabetic ketoacidosis), HHS (hypothenar hammer syndrome), Hypothermia, Pancreatitis, COVID Patient Disposition: Admitted As Inpatient Discharge Instructions Interventions: ED Discharge Assessment Last Done: 05/10/21 14:35 Forms Stand Alone Forms: [employer] Video Prescriptions Prescriptions: No Action atorvastatin 40 mg tablet 40 mg PO DAILY RF: 0 glipizide 5 mg tablet extended release 24hr 5 mg PO DAILY RF: 0 metformin 500 mg tablet extended release 24 hr 1,000 mg PO DAILY RF: 0 Referrals Referrals: PCP,NO [Primary Care Provider] - Discharge Problem: DKA (diabetic ketoacidosis) Qualifiers: Diabetes mellitus type: type 2 Diabetes mellitus complication detail: with coma Qualified Code(s): E11.11 - Type 2 diabetes mellitus with ketoacidosis with coma Hypothermia Qualifiers: Encounter type: initial encounter Qualified Code(s): T68.XXXA - Hypothermia, initial encounter Pancreatitis Qualifiers: Chronicity: acute Pancreatitis type: unspecified pancreatitis type Acute pancreatitis complication: unspecified Qualified Code(s): K85.90 - Acute pancreatitis without necrosis or infection, unspecified
[2021-05-10] MEDS ORDERED: STAT IV Infusion **Titration per Protocol STA ×5 (13:39→14:53)
--- NOTE | 2021-05-10 14:07 | History & Physical Report ---
Date of Service May 10, 2021 Assessment & Plan (1) Admitted to intensive care unit: (2) DKA (diabetic ketoacidosis): (3) Metabolic acidosis: (4) CODY (acute kidney injury): (5) Hypothermia: (6) Pancreatitis: (7) COVID: Plan: This is a critically ill 65-year-old male known past medical history of noninsulin-dependent T2DM alcohol abuse tobacco abuse who presented to ED after being found on floor by girlfriend unresponsive. Unknown duration down, last known well prior to girlfriend going to work at approximately 5:30 PM last evening. Diabetic Ketoacidosis Known T2DM, noncompliant Metabolic acidosis Hypothermia currently admitted to ICU Insulin gtt per protocol start NS + 40meq IVF (courtesy booth cashier changing to 1/2NS + 40meqKCL @ 200cc/hr) serial bmp, vbg, mag, phos hold metformin, glipizide OP A1C 13.4 03/03/21, has been non compliant with meds Broad spectrum antibiotics with vanco/zosyn for now, blood and urine cultures pending further management per courtesy booth cashier consultation - appreciate their assistance in management of critically ill patient CODY with hypernatremia with corrected serum sodium for glucose baseline cr 1.0 bun/cr 42 and 3.08 likely in setting of profound hypovolemia obtain urine studies Elevated Lipase/Pancreatitis lipase 7153, CT a/p w/o evidence of pancreatitis, no evidence of pain to palpation of abdomen continue with fluid resuscitation, repeat lipase in a.m. Sars COV2 + pt w/o resp sx per family, unvaccinated does not meet criteria for remdesivir given renal fxn Unable to prescribe dexamethasone in setting of DKA CT a/p w/ evidence of dependent opacities Pneumomediastinum obtain ct chest saturating well on room air will defer further management to ICU Alcohol abuse awss protocol prn IV ativan IV thiamine and folic acid until able to tolerate PO Tobacco abuse uses smokeless tobacco and cigarettes consider nicotine patch Subacute fracture of L 7th and 8th rib noted on imaging, monitor Diet: NPO Lines: 2 20g and 2 18g, brownlee cath in place DVT ppx: SQ Heparin FULL CODE PCP: Cindi Ca PA-C Plan: Family would like daily updates on patient status Maricarmen Artis (Life Partner) [phone] Vincent Krueger (Brother) [phone] Discussed assessment and treatment plan regarding pt current critical condition. They confirm full code and understand the current critical state of their family member. 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 Hx is provided from family members and ED provider. According to girlfriend he was not himself the past 3 days. He was more quiet and not eating and drinking. She admits he has lost a lot of weight over the last 2 months. He does not take his metformin as prescribed. She admits to him drinking 1 case of beer a day and occasional chewing tobacco/cigarettes. She denies any recent fever or illness. He did not have any respiratory sx concerning for covid per family. In ED patient was unresponsive and hypothermic on arrival at 29.0. His GCS was 9 throughout ER stay and therefore was not intubated as he was breathing on her own and saturating well on room air. He otherwise remained hemodynamically stable. His lab work was consistent with a severe metabolic acidosis in setting of diabetic ketoacidosis CODY with creatinine of 3. His glucose on admission was 1134. CT abdomen pelvis reveal nondependent bibasilar groundglass densities concerning for infectious or inflammatory. No acute abnormalities. Chest x-ray revealed pneumomediastinum, no definitive pneumothorax and age-indeterminate left-sided rib fractures may be acute. Head CT was negative for acute abnormality. In route he received 1 L of IV fluid and had additional 2 L of IV fluid in ED. He also received 50 mEq of sodium bicarb. He was started on insulin drip. Patient was started on banana bag given significant alcohol use. He did receive broad- spectrum antibiotics cefepime. Allergies Allergy/AdvReac Type Severity Reaction Status Date / Time No Known Allergies Allergy Verified 05/10/21 13:25 Home Medications Medication Instructions Recorded Confirmed Type atorvastatin 40 mg tablet 40 mg PO DAILY 05/10/21 05/10/21 History glipizide 5 mg tablet, extended 5 mg PO DAILY 05/10/21 05/10/21 History release 24 hr metformin 500 mg tablet,extended 1,000 mg PO DAILY 05/10/21 05/10/21 History release 24 hr Past Med/Surg History Medical History Diabetes ETOH abuse No pertinent family history Tobacco abuse Surgical History No pertinent past surgical history Family History Other Family history unobtainable Social History (Updated 05/10/21 @ 15:58 by Aminata Hinojosa PA-C) Smoking Status: Current every day smoker Tobacco Type: Cigarettes and Smokeless Tobacco (Dip or Chew) Hx Alcohol Use: Yes Alcohol type: beer Alcohol Intake Frequency Comment: 1 case/day Hx Substance Use: No Preferred Language: Icelandic Communication Ability: Unable Communication Ability Comment: pt unresponsive Benefits Officer Required: No marital status: Life Partner Current Living Situation: Significant Other Assistive Devices: Denture - Upper Review of Systems Review of Systems: Unobtainable due to reduced consciousness Physical Exam Physical Exam: Please defer exam to Dr. Rinaldi addendum for exam findings Results & Data Results & Data ([facility]) Vital Signs (Past 12 Hours) Vital Signs Temp Pulse Resp BP Pulse Ox 05/10/21 13:00 30.6 C L 78 17 127/76 100 05/10/21 12:45 30.3 C L 78 21 123/67 100 05/10/21 12:30 30.0 C L 40 H 100 05/10/21 12:15 30.0 C L 83 15 97 05/10/21 12:00 72 13 99/75 L 96 05/10/21 11:45 73 15 05/10/21 11:31 77 12 100 05/10/21 11:25 29.8 C L 76 10 L 105/70 100 Diagnostic Findings Cervical Spine CT 05/10/21 11:27 CT cervical spine wo con CLINICAL HISTORY: 65 years-old Male with found down ams. Acute neck injury status post fall COMPARISON: Head CT of same day.. TECHNIQUE: Multiple axial CT images of the cervical spine were obtained without contrast. A dose lowering technique was utilized adhering to the principles of ALARA. FINDINGS: Mild mid cervical dextroscoliosis. Multilevel intervertebral disc space narrowing, severe at C6 or C7. 3 mm anterolisthesis C4 on C5 and C7 on T1 is likely secondary to chronic facet arthrosis. There is severe multilevel facet arthrosis with degenerative bony fusion of the right C2-C3 facets. Multilevel neural foraminal narrowing. No acute fracture or subluxation. Lung apices are clear. Calcified plaque of the carotid bulbs. No prevertebral edema. IMPRESSION: No acute cervical spine fracture or subluxation. ACT 112: Negative or not required by law. The above report was generated using voice recognition software. It may contain grammatical, syntax or spelling errors. Electronically signed by: Luigi Corcoran M.D. 05/10/2021 12:08 PM Chest X-Ray 05/10/21 11:27 SINGLE VIEW CHEST CLINICAL HISTORY: Fall. FINDINGS: An AP, portable, supine chest radiographs are obtained. No prior studies are available for comparison at the time of dictation. The cardiomediastinal silhouette is unremarkable. Pneumomediastinum is observed. Bibasilar atelectasis is noted. No airspace consolidation or large pleural effusion is identified. No definite pneumothorax is seen. There are age indeterminant left-sided rib fractures which may be acute. IMPRESSION: 1. There is pneumomediastinum. 2. No definite pneumothorax is seen. 3. Age-indeterminate left-sided rib fractures may be acute. 4. No airspace consolidation or large pleural effusion is identified. ACT 112: Negative or not required by law. Electronically signed by: Zi Guido M.D. 05/10/2021 11:[address] 05/10/21 11:27 CT head/brain wo con CLINICAL HISTORY: 65 years-old Male with found down ams. Acutely altered mental status with fall TECHNIQUE: Multiple axial CT images of the head were obtained without contrast. A dose lowering technique was utilized adhering to the principles of ALARA. CT DOSE: 1780.74 mGycm COMPARISON: CT cervical spine of same day FINDINGS: Motion degraded exam. No acute intracranial hemorrhage, midline shift, intracranial mass, hydrocephalus, territorial ischemia or abnormal extra-axial collection. The lucent changes of the brain parenchyma. The calvarium is intact. The paranasal sinuses, mastoid air cells, and middle ear cavities are clear. IMPRESSION: Motion degraded exam. No acute intracranial abnormality or calvarial fracture. ACT 112: Negative or not required by law. The above report was generated using voice recognition software. It may contain grammatical, syntax or spelling errors. Electronically signed by: Luigi Corcoran M.D. 05/10/2021 12:04 PM Pelvis X-Ray 05/10/21 11:27 XR pelvis 1-2V routine HISTORY: 65 years-old Male found down ams acute pelvic pain status post fall COMPARISON: None TECHNIQUE: Portable AP view of the pelvis FINDINGS: Mild to moderate osteoarthritis of the hips. No acute fracture, dislocation or avascular necrosis. Vascular calcifications. Degenerative changes of the imaged lumbar spine. IMPRESSION: No acute fracture. ACT 112: Negative or not required by law. The above report was generated using voice recognition software. It may contain grammatical, syntax or spelling errors. Electronically signed by: Luigi Corcoran M.D. 05/10/2021 11:56 AM Abdomen/Pelvis CT 05/10/21 11:[address] WITHOUT CONTRAST CT DOSE: 458.44 mGycm HISTORY: Acute abdominal trauma. The patient was found down and has acutely altered mental status. found down ams TECHNIQUE: Multiaxial CT images of the abdomen and pelvis were performed without contrast. A dose lowering technique was utilized adhering to the principles of ALARA. COMPARISON STUDY: Chest radiograph of same day FINDINGS: Nondependent mild bibasilar groundglass densities of the lower lobes. Limited study secondary to upper extremity positioning, lack of significant intra- abdominal fat and lack of contrast. Artifact from telemetry leads also limits the study. The unenhanced spleen,, pancreas, adrenal glands and gallbladder are unremarkable. There are several hepatic cysts measuring up to 11 mm. Subcentimeter hepatic hypodensities are too small to characterize. There are least 3 nonobstructing calculi of the right kidney which measure up to 4 mm. 2 mm calculus of the inferior pole left kidney. No hydronephrosis or ureteral calculi identified. Mild to moderate circumferential wall thickening of the urinary bladder with prostamegaly. Atherosclerosis of the aorta. No adenopathy identified. Healing subacute appearing minimally displaced fracture of the anterolateral left seventh and eighth ribs. IMPRESSION: 1. Limited exam as above. 2. Nondependent bibasilar groundglass densities are suspicious for an infectious or inflammatory pneumonitis. Atelectasis considered less likely. 3. Nonobstructing bilateral nephrolithiasis. 4. Healing subacute fractures of the anterolateral left seventh and eighth ribs. 5. Prostamegaly with suggested chronic bladder outlet obstruction. 6. Additional findings as above. ACT 112: Negative or not required by law. The above report was generated using voice recognition software. It may contain grammatical, syntax or spelling errors. Electronically signed by: Luigi Corcoran M.D. 05/10/2021 12:41 PM Medications Administered Current Inpatient Medications Dextrose (Dextrose 50% 50 Ml Syringe) 25 - 50 ml IV UD PRN; Protocol PRN Reason: Hypoglycemia Protocol Stop: 06/09/21 12:14 Glucagon (Glucagon For Inj 1 Mg Vial) 1 mg IM UD PRN; Protocol PRN Reason: Hypoglycemia Protocol Stop: 06/09/21 12:14 Glucose (Glucose 40% Gel 15 Gm Tube) 15 - 30 gm PO UD PRN; Protocol PRN Reason: Hypoglycemia Protocol Stop: 06/09/21 12:14 Glucose (Glucose 10 Tabs/Tube) 4 - 8 tabs PO UD PRN; Protocol PRN Reason: Hypoglycemia Protocol Stop: 06/09/21 12:14 Vancomycin HCl 1,250 mg/ (Sodium Chloride) 525 mls @ 200 mls/hr IV NOW ONE Stop: 05/10/21 14:38 Last Admin: 05/10/21 13:20 Dose: 200 mls/hr Documented by: Insulin Human Regular 250 (units/ Sodium Chloride) 250 mls @ 5.4 mls/hr IV .Q24H [facility]; Protocol Stop: 06/09/21 12:14 Last Admin: 05/10/21 12:32 Dose: 5.4 units/hr, 5.4 mls/hr Documented by: Multivitamins 10 ml/ Thiamine HCl 100 mg/ Folic Acid 1 mg/Sodium Chloride 1,011.2 mls @ 126.4 mls/hr IV .Q8H ONE Stop: 05/10/21 20:44 Last Admin: 05/10/21 13:43 Dose: 126.4 mls/hr Documented by: Miscellaneous (Carbohydrates For Hypoglycemia ) 15 - 30 gm PO PRN PRN PRN Reason: Hypoglycemia Treatment Stop: 06/09/21 12:14 Miscellaneous Information (Vancomycin Consult Active) 1 ea N/A UD PRN PRN Reason: Consult Stop: 06/09/21 12:00 ECG Rate (beats per minute): 77 Rhythm: normal sinus COVID-19 Results Results COVID-19 Adm Lab Results: RBC 4.55 M/uL (4.7-6.1) L 05/10/21 WBC 9.81 K/uL (4.8-10.8) 05/10/21 Hgb 14.4 g/dL (14.0-18.0) 05/10/21 Hct 44.6 % (42-52) 05/10/21 Plt Count 131 K/uL (130-400) 05/10/21 Neutrophils (%) (Auto) 71.8 % 05/10/21 Lymphocytes (%) (Auto) 12.3 % 05/10/21 Monocytes # (Auto) 1.52 K/uL (0.11-0.59) H 05/10/21 Eosinophils # (Auto) 0.01 K/uL (0-0.5) 05/10/21 Immature Granulocyte % (Auto) 0.3 % 05/10/21 Neutrophils # (Auto) 7.04 K/uL (1.4-6.5) H 05/10/21 Lymphocytes # (Auto) 1.21 K/uL (1.2-3.4) 05/10/21 Monocytes # (Auto) 1.52 K/uL (0.11-0.59) H 05/10/21 Eosinophils # (Auto) 0.01 K/uL (0-0.5) 05/10/21 Basophils # (Auto) 0.00 K/uL (0-0.2) 05/10/21 Immature Granulocyte # (Auto) 0.03 K/uL (0.00-0.02) H 05/10/21 Echinocytes 1+ 05/10/21 Na 145 mmol/L (136-145) 05/10/21 K 3.3 mmol/L (3.5-5.1) L 05/10/21 Cl 110 mmol/L (98-107) H 05/10/21 CO2 8 mmol/L (21-32) L* 05/10/21 Anion Gap 28.0 (3-11) H 05/10/21 BUN 42 mg/dl (7-18) H 05/10/21 Creatinine 2.52 mg/dl (0.6-1.4) H 05/10/21 BUN/Creatinine Ratio 16.5 (10-20) 05/10/21 Glucose Level 705 mg/dl (70-99) H* 05/10/21 Ca 8.3 mg/dl (8.5-10.1) L 05/10/21 Phosphorus Level 4.1 mg/dl (2.5-4.9) 05/10/21 Total Bilirubin 0.6 mg/dl (0.2-1) 05/10/21 Direct Bilirubin 0.1 mg/dl (0-0.2) 05/10/21 AST/SGOT 32 U/L (15-37) 05/10/21 ALT/SGPT 26 (12-78) 05/10/21 Alkaline Phosphatase 95 U/L (45-117) 05/10/21 Total Protein 6.5 gm/dl (6.4-8.2) 05/10/21 Albumin 3.1 gm/dl (3.4-5.0) L 05/10/21 Total CK 280 U/L (39-308) 05/10/21 Troponin I < 0.015 ng/ml (0-0.045) 05/10/21 CRP 0.95 mg/dl (0-0.29) H 05/10/21 Procalcitonin 0.58 ng/ml (0-0.5) H 05/10/21 Ferritin 1560.0 ng/ml (8-388) H 05/10/21 PTT 38.2 Seconds (21.0-31.0) H 05/10/21 INR 1.1 (0.9-1.1) 05/10/21 COVID-19 PCR POSITIVE (Negative) A* 05/10/21 Influenza Virus Type A (PCR) Negative (Neg) 05/10/21 Influenza Virus Type B (PCR) Negative (Neg) 05/10/21 Chest X-Ray 05/10/21 Code Status & VTE Plan Code Status FULL CODE VTE Prophylaxis Plan VTE Prophylaxis will be ordered: Yes Supervising Physician Co-Signing Physician Notes Pt is a 65 y/o M with hx of uncontrolled DMII, ETOH abuse brought in by ambulance after his GF found him on the floor minimally responsive. He is admitted for DKA, AMS with hypothermia and positive COVID test result. Exam: -possible kussmaul breathing -minimally responsive to painful stimuli, PERRLA -Lungs: fair air entry b/l with b/l lower lobe crackles -Cardiac: systolic murmur -Abd: ND, soft -MSK: low LE edema A/P: DKA with unresponsiveness: -currently on insulin drip and admitted to ICU -pt is acidotic with low bicarp --- s/p sodium bicarp -will do Q2hr BMP - on admission pt was saturating well on Room air --- will monitor airway and ABG Hypothermia: -will get BCx, UA/UCx - due to cardiac murmur will get an echo -will start the pt on broad spectrum zosyn + Vancomycin COVID +: -due to DKA will hold dexamethasone -not sure whether it is an acute infection or positive PCR from previous infection -CXR: Pneumomediastinum with bibasilar atelectasis - admitted to ICU ---- does not think pt is a candidate for baricitnib or remdesivir Hx of ETOH abuse + elevated lipase: -CT abd showed no sign of pancreatitis -currently unresponsive -will consider CIWA protocol as pt becomes more awake/alert Examined the pt with Aminata Hinojosa PA-C (1) DKA (diabetic ketoacidosis) Diabetes mellitus complication detail: with coma Diabetes mellitus type: type 2 Qualified Code(s): E11.11 - Type 2 diabetes mellitus with ketoacidosis with coma (2) Hypothermia Encounter type: initial encounter Qualified Code(s): T68.XXXA - Hypothermia, initial encounter (3) Pancreatitis Acute pancreatitis complication: unspecified Chronicity: acute Pancreatitis type: unspecified pancreatitis type Qualified Code(s): K85.90 - Acute pancreatitis without necrosis or infection, unspecified
[2021-05-10 14:36] LABS: BUN Creatinine Ratio 15.7 (10-20); Blood Urea Nitrogen 43 mg/dl (7-18); Calcium 8.6 mg/dl (8.5-10.1); Carbon Dioxide 5 mmol/L (21-32); Chloride 103 mmol/L (98-107); Est GFR (African American) 26.9 ml/min; Est GFR (Non-African American) 23.2 ml/min; Glucose 952 mg/dl (70-99); Magnesium 2.7 mg/dl (1.8-2.4); Phosphorus 8.1 mg/dl (2.5-4.9); Potassium 3.6 mmol/L (3.5-5.1); Sodium 141 mmol/L (136-145)
[2021-05-10] MEDS ORDERED: POTASSIUM CHLORIDE 40 MEQ in NORMOSOL-R 1,000 ML IV SCH (15:00)
--- NOTE | 2021-05-10 15:11 | Critical Care Consultation ---
Date of Consultation May 10, 2021 Assessment & Plan (1) Admitted to intensive care unit: (2) DKA (diabetic ketoacidosis): (3) Hypothermia: (4) Pancreatitis: (5) Metabolic acidosis: (6) CODY (acute kidney injury): (7) Tobacco abuse: (8) ETOH abuse: (9) Diabetes: Attending: Dr. Alves Impression: 65-year-old male found down at home by his girlfriend. He was unresponsive. Unknown time down. Patient transported to the emergency department and found to be positive for Covid-19. CT scan of the head without acute abnormalities or calvarial fracture. LFTs normal. Total creatinine kinase is not elevated. Patient does have acute renal failure and severe hyperglycemia. Home medications reflect glipizide and Metformin for diabetes and no regular insulin. Elevated lipase over 7000. We will admit the patient in the intensive care unit for acute management of DKA and unresponsiveness. Reason Critically Ill: Altered mental status secondary metabolic acidosis/DKA. Neuro - [facility] ICU: Patient unresponsive. CT scan of the head is negative for acute abnormalities. Check ammonia level although LFTs are normal. Treat underlying DKA. See below under endocrine. Procalcitonin is 0.58. Screening negative for salicylates, acetaminophen, ethanol Check complete tox screen with urine. Patient does not seem to be on any SSRIs. Cardiac - Hemodynamically stable. Current blood pressure 135/82. No apparent history of hypertension Patient is on atorvastatin -hold for now Respiratory - COVID-19 positive per serology Negative for influenza A and influenza B. Negative for RSV Chest x-ray with no evidence of multifocal opacification Oxygenation adequate on room air Lungs appear to be hyperinflated suggesting COPD/emphysema -no PFTs available Continue to maintain SaO2 greater than 90% Continue precautions for Covid No indication for steroids, remdesivir, monoclonal antibodies at this time Incidental finding of pneumomediastinum on chest x-ray Oxygenating well on room air. Repeat chest x-ray at 5 PM Repeat chest x-ray in the morning to monitor Covid status GI - No PPI or H2 olayinka at home Consider famotidine if condition does not improve or patient started on steroids if respiratory status declines No elevation of LFTs or total creatinine kinase We will check ammonia level due to decreased mental status Pancreatitis Patient with elevated lipase. CT abdomen pelvis with no abnormalities of pancreas or biliary ductal dilatation IV fluids at 200 mL/h Follow serial labs RENAL/LYTES - Acute kidney failure Patient with hyperkalemia with corrected sodium for DKA We will start half-normal saline with 40 mEq of potassium chloride per liter Serial labs for DKA Magnesium 2.7 - Pineda catheter to gravity Check osmolality Strict I's and O's ENDO - Diabetes mellitus type 2 Glipizide and metformin at home. No insulin recorded Patient currently in DKA with anion gap of 33 IV fluids Insulin drip No evidence of pancreatic mass or cysts HEME - Hemoglobin 14.4 No evidence of active bleeding Follow serial labs due to high fluid Hemodynamically stable ID - Patient given cefepime in the ER and started on vancomycin MRSA screening is pending Procalcitonin 0.58 Blood cultures x2+ urine culture pending No leukocytosis We will await cultures but suspect that we can de-escalate antibiotics LINES/IV ACCESS - Peripheral IVs in place No indication at this time for central venous access or arterial access Continue to monitor DVT PROPHYLAXIS - Patient unresponsive and positive for Covid APTT is elevated although no transaminitis Will start enoxaparin daily and follow APTT CCT: 65 minutes independent of any procedures Thank you for including us in the care of this patient. Please refer to Dr. Alves's addendum for further recommendations. Supervising Physician Co-Signing Physician Notes Seen and examined. EMR reviewed. Discussed with CC CRISTAL and agree with AP as noted. Continue insulin gtt and follow mental status. suspect metabolic encephalopathy. If MS fails to improve with correction of metabolic disarray, may consider additional evaluation. rewarming now passively. follow for Etoh withdrawl - high dose thiamine. No indication for abx currently. Given marked hypothermia, check TSH and cortisol. History of Present Illness Reason for Consultation: Unresponsive DKA Covid patient with history of tobacco on alcohol abuse Attending Physician: Jennifer Rinaldi MD History of Present Illness Attending: Dr. Alves There is a 65-year-old cachectic male with a past medical history including diabetes mellitus type 2, alcohol abuse, tobacco abuse. Patient was found on the floor by his girlfriend. Brought to the emergency department and found to have elevated glucose over 800. He was started on insulin drip. Patient was transferred to intensive care unit in room 105. He was found to be unresponsive. Pupils are equal round and reactive to light but sluggish. Patient does not follow any commands. Patient has CT scan of the head which is negative for acute abnormality or calvarial fracture. Anion gap is 33. Potassium 3.6. Magnesium 2.7. Creatinine is elevated 2.76. PCR for Covid was positive. Unknown history of patient regarding Covid contacts. CRP, ferritin have been ordered. Procalcitonin is 0.58. Vaccination status unknown History of tobacco and ethanol abuse per records. Allergies Allergy/AdvReac Type Severity Reaction Status Date / Time No Known Allergies Allergy Verified 05/10/21 13:25 Home Medications Medication Instructions Recorded Confirmed Type atorvastatin 40 mg tablet 40 mg PO DAILY 05/10/21 05/10/21 History glipizide 5 mg tablet, extended 5 mg PO DAILY 05/10/21 05/10/21 History release 24 hr metformin 500 mg tablet,extended 1,000 mg PO DAILY 05/10/21 05/10/21 History release 24 hr Patient History Medical History Diabetes ETOH abuse No pertinent family history Tobacco abuse Surgical History No pertinent past surgical history Family History Other Family history unobtainable Social History (Updated 05/10/21 @ 15:58 by Aminata Hinojosa PA-C) Smoking Status: Current every day smoker Tobacco Type: Cigarettes and Smokeless Tobacco (Dip or Chew) Hx Alcohol Use: Yes Alcohol type: beer Alcohol Intake Frequency Comment: 1 case/day Hx Substance Use: No Preferred Language: Welsh Communication Ability: Unable Communication Ability Comment: pt unresponsive Funeral Pre Arrangement Specialist Required: No marital status: Life Partner Current Living Situation: Significant Other Assistive Devices: Denture - Upper Review of Systems Review of Systems: Unobtainable due to reduced consciousness Physical Exam Physical Exam: GENERAL : Patient cachectic. Appears ill. Unresponsive. EYES: No icterus, gaze conjugate. Pupils equal round responsive to light but sluggish NOSE: No evidence of epistaxis MOUTH: No lesions or candidiasis. Mucosa dry. Tongue midline NECK: Supple. No appreciation of stridor or bruits LUNGS: CTA B/L, no wheezes, rales or rhonchi. HEART: Regular, rate in the 90s ABDOMEN: Soft, NT, ND, BS Present. No guarding or response to deep palpation EXTREMITIES: No LE edema, pedal pulses intact and equal bilaterally NEURO: Patient is unresponsive. CT scan of the head is negative for acute findings. Patient's pupils are equal round and reactive to light but are sluggish. No spontaneous movement to limbs. Patient nonresponsive to forehead tap or sternal rub. No response to verbal stimulus. DEMETRIA is negative. Elevated sugar. Elevated anion gap. Results & Data Results & Data ([facility]) Vital Signs (Past 12 Hours) Vital Signs Temp Pulse Resp BP Pulse Ox 05/10/21 14:30 32.2 C L 90 12 133/72 100 05/10/21 14:15 31.9 C L 90 14 128/79 100 05/10/21 14:00 31.7 C L 89 12 129/74 100 05/10/21 13:45 31.5 C L 89 14 125/73 100 05/10/21 13:30 31.2 C L 86 10 L 125/82 100 05/10/21 13:15 30.9 C L 80 19 123/74 100 05/10/21 13:00 30.6 C L 78 17 127/76 100 05/10/21 12:45 30.3 C L 78 21 123/67 100 05/10/21 12:30 30.0 C L 40 H 100 05/10/21 12:15 30.0 C L 83 15 97 05/10/21 12:00 72 13 99/75 L 96 05/10/21 11:45 73 15 05/10/21 11:31 77 12 100 05/10/21 11:25 29.8 C L 76 10 L 105/70 100 Laboratory Results 05/10/21 11:36 05/10/21 13:53 Critical Care Results & Data Vital Signs (Past 12 Hours) Vital Signs Temp Pulse Resp BP Pulse Ox 05/10/21 14:30 32.2 C L 90 12 133/72 100 05/10/21 14:15 31.9 C L 90 14 128/79 100 05/10/21 14:00 31.7 C L 89 12 129/74 100 05/10/21 13:45 31.5 C L 89 14 125/73 100 05/10/21 13:30 31.2 C L 86 10 L 125/82 100 05/10/21 13:15 30.9 C L 80 19 123/74 100 05/10/21 13:00 30.6 C L 78 17 127/76 100 05/10/21 12:45 30.3 C L 78 21 123/67 100 05/10/21 12:30 30.0 C L 40 H 100 05/10/21 12:15 30.0 C L 83 15 97 05/10/21 12:00 72 13 99/75 L 96 05/10/21 11:45 73 15 05/10/21 11:31 77 12 100 05/10/21 11:25 29.8 C L 76 10 L 105/70 100 Lab & Micro Results (Past 24 Hours) RBC 4.55 M/uL (4.7-6.1) L 05/10/21 WBC 9.81 K/uL (4.8-10.8) 05/10/21 Hgb 14.4 g/dL (14.0-18.0) 05/10/21 Hct 44.6 % (42-52) 05/10/21 MCV 98.0 fL (80-100) 05/10/21 MCH 31.6 pg (25-34) 05/10/21 MCHC 32.3 g/dL (32-36) 05/10/21 Plt Count 131 K/uL (130-400) 05/10/21 Neutrophils (%) (Auto) 71.8 % 05/10/21 Lymphocytes (%) (Auto) 12.3 % 05/10/21 Monocytes # (Auto) 1.52 K/uL (0.11-0.59) H 05/10/21 Eosinophils # (Auto) 0.01 K/uL (0-0.5) 05/10/21 Immature Granulocyte % (Auto) 0.3 % 05/10/21 Neutrophils # (Auto) 7.04 K/uL (1.4-6.5) H 05/10/21 Lymphocytes # (Auto) 1.21 K/uL (1.2-3.4) 05/10/21 Monocytes # (Auto) 1.52 K/uL (0.11-0.59) H 05/10/21 Eosinophils # (Auto) 0.01 K/uL (0-0.5) 05/10/21 Basophils # (Auto) 0.00 K/uL (0-0.2) 05/10/21 Immature Granulocyte # (Auto) 0.03 K/uL (0.00-0.02) H 05/10/21 Echinocytes 1+ 05/10/21 Na 141 mmol/L (136-145) 05/10/21 K 3.6 mmol/L (3.5-5.1) 05/10/21 Cl 103 mmol/L (98-107) 05/10/21 CO2 5 mmol/L (21-32) L* 05/10/21 Anion Gap 33.0 (3-11) H 05/10/21 BUN 43 mg/dl (7-18) H 05/10/21 Creatinine 2.76 mg/dl (0.6-1.4) H 05/10/21 Estimated GFR ( Amer) 26.9 ml/min 05/10/21 Estimated GFR (Non-Af Amer) 23.2 ml/min 05/10/21 BUN/Creatinine Ratio 15.7 (10-20) 05/10/21 Glu 952 mg/dl (70-99) H* 05/10/21 Ca 8.6 mg/dl (8.5-10.1) 05/10/21 Phosphorus Level 8.1 mg/dl (2.5-4.9) H 05/10/21 Total Bilirubin 0.5 mg/dl (0.2-1) 05/10/21 Direct Bilirubin 0.2 mg/dl (0-0.2) 05/10/21 AST 34 U/L (15-37) 05/10/21 ALT 29 (12-78) 05/10/21 Alkaline Phosphatase 118 U/L (45-117) H 05/10/21 TP 7.9 gm/dl (6.4-8.2) 05/10/21 Albumin 3.9 gm/dl (3.4-5.0) 05/10/21 Mg 2.7 mg/dl (1.8-2.4) H 05/10/21 13:53 05/10/21 Calcium Level 8.6 mg/dl (8.5-10.1) 05/10/21 13:53 05/10/21 Prothromb Time International Ratio 1.1 (0.9-1.1) 05/10/21 11:36 05/10/21 Venous Blood pH 6.91 (7.36-7.41) L 05/10/21 12:41 05/10/21 Venous Blood Partial Pressure CO2 33 mmHg (38-50) L 05/10/21 12:41 05/10/21 Venous Blood Partial Pressure O2 38 mmHg 05/10/21 12:41 05/10/21 Venous Blood HCO3 7 mmol/L 05/10/21 12:41 05/10/21 Venous Blood Base Excess -25.5 mEq/L 05/10/21 12:41 05/10/21 Venous Blood Oxygen Saturation 61.3 % 05/10/21 12:41 05/10/21 Blood Gas Barometric Pressure 744.1 mm/Hg 05/10/21 12:41 05/10/21 Blood Gas Barometric Pressure 744.1 mm/Hg 05/10/21 12:41 05/10/21 Diagnostic Findings (Past 24 Hours) Cervical Spine CT 05/10/21 11:27 CT cervical spine wo con CLINICAL HISTORY: 65 years-old Male with found down ams. Acute neck injury status post fall COMPARISON: Head CT of same day.. TECHNIQUE: Multiple axial CT images of the cervical spine were obtained without contrast. A dose lowering technique was utilized adhering to the principles of ALARA. FINDINGS: Mild mid cervical dextroscoliosis. Multilevel intervertebral disc space narrowing, severe at C6 or C7. 3 mm anterolisthesis C4 on C5 and C7 on T1 is likely secondary to chronic facet arthrosis. There is severe multilevel facet arthrosis with degenerative bony fusion of the right C2-C3 facets. Multilevel neural foraminal narrowing. No acute fracture or subluxation. Lung apices are clear. Calcified plaque of the carotid bulbs. No prevertebral edema. IMPRESSION: No acute cervical spine fracture or subluxation. ACT 112: Negative or not required by law. The above report was generated using voice recognition software. It may contain grammatical, syntax or spelling errors. Electronically signed by: Luigi Corcoran M.D. 05/10/2021 12:08 PM Chest X-Ray 05/10/21 11:27 SINGLE VIEW CHEST CLINICAL HISTORY: Fall. FINDINGS: An AP, portable, supine chest radiographs are obtained. No prior studies are available for comparison at the time of dictation. The cardiomediastinal silhouette is unremarkable. Pneumomediastinum is observed. Bibasilar atelectasis is noted. No airspace consolidation or large pleural effusion is identified. No definite pneumothorax is seen. There are age indeterminant left-sided rib fractures which may be acute. IMPRESSION: 1. There is pneumomediastinum. 2. No definite pneumothorax is seen. 3. Age-indeterminate left-sided rib fractures may be acute. 4. No airspace consolidation or large pleural effusion is identified. ACT 112: Negative or not required by law. Electronically signed by: Zi Guido M.D. 05/10/2021 11:[address] 05/10/21 11:27 CT head/brain wo con CLINICAL HISTORY: 65 years-old Male with found down ams. Acutely altered mental status with fall TECHNIQUE: Multiple axial CT images of the head were obtained without contrast. A dose lowering technique was utilized adhering to the principles of ALARA. CT DOSE: 1780.74 mGycm COMPARISON: CT cervical spine of same day FINDINGS: Motion degraded exam. No acute intracranial hemorrhage, midline shift, intracranial mass, hydrocephalus, territorial ischemia or abnormal extra-axial collection. The lucent changes of the brain parenchyma. The calvarium is intact. The paranasal sinuses, mastoid air cells, and middle ear cavities are clear. IMPRESSION: Motion degraded exam. No acute intracranial abnormality or calvarial fracture. ACT 112: Negative or not required by law. The above report was generated using voice recognition software. It may contain grammatical, syntax or spelling errors. Electronically signed by: Luigi Corcorna M.D. 05/10/2021 12:04 PM Pelvis X-Ray 05/10/21 11:27 XR pelvis 1-2V routine HISTORY: 65 years-old Male found down ams acute pelvic pain status post fall COMPARISON: None TECHNIQUE: Portable AP view of the pelvis FINDINGS: Mild to moderate osteoarthritis of the hips. No acute fracture, dislocation or avascular necrosis. Vascular calcifications. Degenerative changes of the imaged lumbar spine. IMPRESSION: No acute fracture. ACT 112: Negative or not required by law. The above report was generated using voice recognition software. It may contain grammatical, syntax or spelling errors. Electronically signed by: Luigi Corcoran M.D. 05/10/2021 11:56 AM Abdomen/Pelvis CT 05/10/21 11:[address] WITHOUT CONTRAST CT DOSE: 458.44 mGycm HISTORY: Acute abdominal trauma. The patient was found down and has acutely altered mental status. found down ams TECHNIQUE: Multiaxial CT images of the abdomen and pelvis were performed without contrast. A dose lowering technique was utilized adhering to the principles of ALARA. COMPARISON STUDY: Chest radiograph of same day FINDINGS: Nondependent mild bibasilar groundglass densities of the lower lobes. Limited study secondary to upper extremity positioning, lack of significant intra- abdominal fat and lack of contrast. Artifact from telemetry leads also limits the study. The unenhanced spleen,, pancreas, adrenal glands and gallbladder are unremarkable. There are several hepatic cysts measuring up to 11 mm. Subcentimeter hepatic hypodensities are too small to characterize. There are least 3 nonobstructing calculi of the right kidney which measure up to 4 mm. 2 mm calculus of the inferior pole left kidney. No hydronephrosis or ureteral calculi identified. Mild to moderate circumferential wall thickening of the urinary bladder with prostamegaly. Atherosclerosis of the aorta. No adenopathy identified. Healing subacute appearing minimally displaced fracture of the anterolateral left seventh and eighth ribs. IMPRESSION: 1. Limited exam as above. 2. Nondependent bibasilar groundglass densities are suspicious for an infectious or inflammatory pneumonitis. Atelectasis considered less likely. 3. Nonobstructing bilateral nephrolithiasis. 4. Healing subacute fractures of the anterolateral left seventh and eighth ribs. 5. Prostamegaly with suggested chronic bladder outlet obstruction. 6. Additional findings as above. ACT 112: Negative or not required by law. The above report was generated using voice recognition software. It may contain grammatical, syntax or spelling errors. Electronically signed by: Luigi Corcoran M.D. 05/10/2021 12:41 PM I & O Totals 24 Hours 05/09/21 05/10/21 05/11/21 06:59 06:59 06:59 Intake Total 2600.8 / 2600.8 Output Total 400 / 400 Balance 2200.8 / 2200.8 Cumulative 05/10/21 11:11 thru 05/10/21 14:35 Intake Total 2600.8 Output Total 400 Balance 2200.8 RT Ventilator Mngmt (Last Documented) Ventilator Ordered Settings Respiratory Rate 12 05/10/21 14:30 Ventilator - PT Measurements Respiratory Rate 12 Coding Level of Care Code Critical Care 1st 30-74 mins Diagnoses DKA (diabetic ketoacidosis) E11.11 Diabetes mellitus complication detail: with coma Diabetes mellitus type: type 2 Hypothermia T68.XXXA Encounter type: initial encounter Pancreatitis K85.90 Acute pancreatitis complication: unspecified Chronicity: acute Pancreatitis type: unspecified pancreatitis type Metabolic acidosis E87.2 CODY (acute kidney injury) N17.9 Admitted to intensive care unit Z78.9 Tobacco abuse Z72.0 ETOH abuse F10.10 Diabetes E11.9 Time Spent (min) 65 (1) DKA (diabetic ketoacidosis) Diabetes mellitus complication detail: with coma Diabetes mellitus type: type 2 Qualified Code(s): E11.11 - Type 2 diabetes mellitus with ketoacidosis with coma (2) Hypothermia Encounter type: initial encounter Qualified Code(s): T68.XXXA - Hypothermia, initial encounter (3) Pancreatitis Acute pancreatitis complication: unspecified Chronicity: acute Pancreatitis type: unspecified pancreatitis type Qualified Code(s): K85.90 - Acute pancreatitis without necrosis or infection, unspecified
[2021-05-10] MEDS ORDERED: INSULIN REGULAR 250 UNITS in SODIUM CHLORIDE 0.9% 247.5 ML IV SCH (15:33)
[2021-05-10] MEDS ORDERED: PIPERACILL/TAZOBAC CONSULT ACTIVE PRN (15:33)
[2021-05-10] MEDS ORDERED: DKA GOAL RANGE 150-250 mg/dl ONE (15:33)
[2021-05-10] MEDS ORDERED: ICU PROTOCOL FOR HYPERGLYCEMIA PRN (15:33)
[2021-05-10] MEDS ORDERED: LORazepam 1 MG/2 ML VIAL IV PRN (15:33)
[2021-05-10] MEDS ORDERED: PHARMACY GLYCEMIC MGMT CONSULT PRN (15:33)
[2021-05-10] MEDS ORDERED: THIAMINE HCL 100 MG in SYRINGE 9 ML IV SCH (15:45)
[2021-05-10] MEDS ORDERED: PIPERACILLIN/TAZOBACTAM 4.5 GM in DEXTROSE 5% 100 ML IV ONE (15:45)
[2021-05-10] MEDS ORDERED: PATIENT'S HEIGHT AND/OR WEIGHT NEEDED SCH (15:45)
[2021-05-10] MEDS: FOLIC ACID 1 MG in SYRINGE 9.8 ML IV SCH (16:26)
[2021-05-10] MEDS: HEPARIN SOD 5,000 UNIT/0.5 ML VIAL SQ SCH ×2 (16:26→22:14)
[2021-05-10 16:27] LABS: Beta-Hydroxybutyrate > 138.00 mg/dl (0.2-2.81)
[2021-05-10] MEDS ORDERED: INSULIN ASPART PER UNIT SC SCH (16:30)
[2021-05-10] MEDS: POTASSIUM CHLORIDE 40 MEQ in SODIUM CHLORIDE 0.45 % 1,000 ML IV SCH ×2 (16:35→20:58)
[2021-05-10 17:10] LABS: Albumin Level 3.1 gm/dl (3.4-5.0); BUN Creatinine Ratio 16.5 (10-20); Bilirubin Direct 0.1 mg/dl (0-0.2); Bilirubin,Total 0.6 mg/dl (0.2-1); C Reactive Protein 0.95 mg/dl (0-0.29); Calcium 8.3 mg/dl (8.5-10.1); Creatinine Clr Calc Pharmacy 22.2 ml/min; Est GFR (Non-African American) 25.9 ml/min; Magnesium 2.3 mg/dl (1.8-2.4); Phosphorus 4.1 mg/dl (2.5-4.9); Potassium 3.3 mmol/L (3.5-5.1); Total Protein 6.5 gm/dl (6.4-8.2)
[2021-05-10] MEDS: INSULIN ASPART PER UNIT SC SCH ×2 (17:10→21:41)
[2021-05-10] MEDS: PENDING D5 1/2NS+40mEq KCL IVF SCH ×3 (17:10→19:06)
[2021-05-10 17:21] LABS: Thyroid Stimulating Hormone 5.17 uIu/ml (0.300-4.500)
--- NOTE | 2021-05-10 17:24 | XRay Report ---
XR chest 1V portable HISTORY: Follow up possible pneumomediastinum. COMPARISON: Chest 05/10/2021. FINDINGS: No pneumothorax. No pleural fusions. No pneumomediastinum identified. The heart is top norm al in size. This mildly tortuous thoracic aorta. Subacute left-sided rib fractures are again noted. T he upper lung zones are clear. A few bibasilar densities favor subsegmental atelectasis. No evidence for pulmonary edema. IMPRESSION: 1. No pneumothorax or pneumomediastinum. 2. Subacute left-sided rib fractures are again noted. ACT 112: Negative or not required by law. Electronically signed by: Helio Bhardwaj M.D. 05/10/2021 5:23 PM
[2021-05-10 17:40] LABS: T4 Free Thyroxine 0.56 ng/dl (0.8-1.6)
[2021-05-10 17:48] LABS: Amphetamines+Metham, Urine Neg (Neg); Barbiturates, Urine Neg (Neg); Benzodiazepine, Urine Neg (Neg); Cocaine, Urine Neg (Neg); MDMA (Ecstacy), Urine Neg (Neg); Methadone, Urine Neg (Neg); Opiate, Urine Neg (Neg); Phencyclidine, Urine Neg (Neg)
[2021-05-10 17:49] LABS: Creatinine Urine Random < 13.0 mg/dl; Sodium Random Urine 81 mmol/L; Total Protein Urine Random 55.2 mg/dl (0-11.9)
[2021-05-10 20:27] LABS: BUN Creatinine Ratio 17.9 (10-20); Calcium 8.9 mg/dl (8.5-10.1); Est GFR (African American) 31.4 ml/min; Est GFR (Non-African American) 27.1 ml/min; Magnesium 2.2 mg/dl (1.8-2.4); Phosphorus 0.6 mg/dl (2.5-4.9); Potassium 3.1 mmol/L (3.5-5.1)
[2021-05-10] MEDS ORDERED: POTASSIUM PHOS 3 MMOL/1 ML INFUSION IV STA (20:38)
[2021-05-10] MEDS: POTASSIUM CHLORIDE / WTR 10 MEQ/100 ML PLCT IV SCH ×3 (20:58→23:27)
[2021-05-10] MEDS: THIAMINE HCL 100 MG in SYRINGE 9 ML IV SCH (20:58)
[2021-05-10] MEDS ORDERED: POTASSIUM PHOSPHATE 21 MMOL in SODIUM CHLORIDE 0.9% 500 ML IV ONE (21:00)
[2021-05-10 21:03] LABS: Beta-Hydroxybutyrate 77.71 mg/dl (0.2-2.81)
[2021-05-10] MEDS: PIPERACILLIN/TAZOBACTAM 4.5 GM in DEXTROSE 5% 100 ML IV SCH (22:13)
[2021-05-11] MEDS: POTASSIUM CHLORIDE / WTR 10 MEQ/100 ML PLCT IV SCH ×7 (00:02→06:18)
[2021-05-11 00:55] LABS: BUN Creatinine Ratio 17.5 (10-20); Calcium 8.9 mg/dl (8.5-10.1); Creatinine Clr Calc Pharmacy 22.8 ml/min; Est GFR (African American) 31.1 ml/min; Est GFR (Non-African American) 26.8 ml/min; Phosphorus 0.7 mg/dl (2.5-4.9); Potassium 3.1 mmol/L (3.5-5.1)
[2021-05-11 01:09] LABS: Beta-Hydroxybutyrate 36.09 mg/dl (0.2-2.81)
[2021-05-11] MEDS ORDERED: POTASSIUM CHLORIDE 40 MEQ in SODIUM CHLORIDE 0.45 % 1,000 ML IV SCH (01:30)
[2021-05-11] MEDS ORDERED: POTASSIUM CHLORIDE 40 MEQ in D5W AND 1/2NSS 1,000 ML IV SCH (03:15)
[2021-05-11 04:40] LABS: Magnesium 1.7 mg/dl (1.8-2.4)
[2021-05-11 04:44] LABS: BUN Creatinine Ratio 17.2 (10-20); Creatinine Clr Calc Pharmacy 23.7 ml/min; Est GFR (African American) 32.5 ml/min; Potassium 4.1 mmol/L (3.5-5.1)
[2021-05-11] MEDS ORDERED: MAGNESIUM SULFATE / D5W 1 GM/100 ML BAG IV ONE (04:56)
[2021-05-11 05:09] LABS: Hematocrit (blood only) 33.9 % (42-52); Hemoglobin 11.5 g/dL (14.0-18.0); Mean Corpuscular Hemoglobin 30.4 pg (25-34); Mean Corpuscular Hgb Conc 33.9 g/dL (32-36); Mean Corpuscular Volume 89.7 fL (80-100); Platelet Count 101 K/uL (130-400); Red Blood Count 3.78 M/uL (4.7-6.1); White Blood Count 7.21 K/uL (4.8-10.8)
[2021-05-11 05:10] LABS: Mean Platelet Volume 10.1 fL (7.4-10.4)
[2021-05-11] MEDS: D5W AND 1/2NSS + 20MEQ KCL 20 MEQ/1,000 ML BAG IV SCH ×2 (05:10→14:34)
[2021-05-11] MEDS: HEPARIN SOD 5,000 UNIT/0.5 ML VIAL SQ SCH ×3 (05:12→21:46)
[2021-05-11 05:15] LABS: Eosinophils # (auto) 0.01 K/uL (0-0.5); Eosinophils % (auto) 0.1 %; Immature Granulocytes # (auto) 0.02 K/uL (0.00-0.02); Immature Granulocytes % (auto) 0.3 %; Lymphocytes # (auto) 0.66 K/uL (1.2-3.4); Lymphocytes % (auto) 9.2 %; Monocytes # (auto) 1.81 K/uL (0.11-0.59); Monocytes % (auto) 25.1 %; Neutrophils # (auto) 4.71 K/uL (1.4-6.5); Neutrophils % (auto) 65.3 %
[2021-05-11 07:12] LABS: Estimated Average Glucose 392 mg/dl; Hemoglobin A1C 15.3 % (4.5-5.6)
[2021-05-11] MEDS ORDERED: VANCOMYCIN HCL 750 MG in SODIUM CHLORIDE 0.9% 250 ML IV ONE (07:15)
[2021-05-11] MEDS: PENDING D5 1/2NS+40mEq KCL IVF SCH (07:25)
[2021-05-11] MEDS: POTASSIUM CHLORIDE 40 MEQ in SODIUM CHLORIDE 0.45 % 1,000 ML IV SCH (07:25)
[2021-05-11] MEDS ORDERED: DKA GOAL RANGE 150-250 mg/dl ONE (07:49)
[2021-05-11] MEDS ORDERED: STAT IV Infusion **Titration per Protocol STA (07:49)
--- NOTE | 2021-05-11 07:54 | XRay Report ---
SINGLE VIEW CHEST CLINICAL HISTORY: Pneumomediastinum Covid. FINDINGS: An AP, portable, upright chest radiograph is compared to study dated 05/10/2021. Correlatio n is made with abdominal CT dated 05/10/2021. The heart is mildly enlarged. The pulmonary vasculature is noncongested. There mild left basilar opacities. No large pleural effusion or pneumothorax is see n. The skeletal structures are osteopenic. Subacute left-sided rib fractures are again noted. IMPRESSION: 1. No pneumothorax or pneumomediastinum. 2. Mild left basilar opacities are unchanged. ACT 112: Negative or not required by law. Electronically signed by: Zi Guido M.D. 05/11/2021 7:52 AM
--- NOTE | 2021-05-11 08:07 | Critical Care Progress Note ---
Date of Service May 11, 2021 Assessment & Plan (1) Admitted to intensive care unit: (2) DKA (diabetic ketoacidosis): (3) Hypothermia: (4) Pancreatitis: (5) Metabolic acidosis: (6) CODY (acute kidney injury): (7) Tobacco abuse: (8) ETOH abuse: (9) Diabetes: Plan: Impression: 65-year-old male found down at home by his girlfriend. He was unresponsive. Unknown time down. Patient transported to the emergency department and found to be positive for Covid-19. CT scan of the head without acute abnormalities or calvarial fracture. LFTs normal. Total creatinine kinase is not elevated. Patient does have acute renal failure and severe hype rglycemia. Home medications reflect glipizide and Metformin for diabetes and no regular insulin. Elevated lipase over 7000. We will admit the patient in the intensive care unit for acute management of DKA and unresponsiveness. 24-hour events: Patient was seen in the emergency room and admitted to the ICU. He has been maintained on high insulin infusion overnight. He was passively rewarmed. His anion gap is closed this morning. He remains somewhat encephalopathic. Urine output is picking up. Recommendations Neuro - metabolic encephalopathy. Suspect multifactorial etiology due to the renal failure, glucose shifts, and potential hypothyroidism. Toxicology screen was negative. Alcohol level undetectable. Ammonia level was elevated at 37 and may represent mild form of hepatic encephalopathy. Patient cannot take p.o. so lactulose and rifaximin are not really an option at this point time and I doubt he tolerated retention enemas. No indication for repeat imaging. Continue to follow clinically at this point time with anticipated improvement in the patient's mental status as his metabolic abnormalities corrected. Cardiac -hemodynamically stable. Echocardiogram pending to evaluate systolic murmur. Holding lipid-lowering agents currently. He is slightly tachycardic this morning. We'll give an additional fluid bolus as he may still be on the intravascular dry side Respiratory -on room air. Covid positive. He is not hypoxemic so does not warrant any additional therapy. We'll need aggressive pulmonary toilet. Possible pneumomediastinum identified on chest x-ray. Not clearly identified on follow-up imaging. Avoid positive airway pressure if possible. Likely some degree of obstructive lung disease given hyperinflation. Not bronchospastic. No indication for inhalers antibiotics or steroids currently GI -elevated lipase. Exam not entirely reliable due to the patient's mental state but he is not significantly distended and does not appear painful on exam. Lipase decreasing today. Advancing diet as tolerated by mental status RENAL/LYTES - serum creatinine improved this morning. Unclear baseline. Given his markedly elevated hemoglobin A1c, tightly likely the patient has some degree of diabetic nephropathy. Electrolytes are being replaced. Acid-base status improved, see comments under endocrine below. Depending on how his creatinine sorts out, outpatient follow-up with nephrology may be appropriate. -Pineda catheter ENDO -severe DKA. His gap is closed this morning. His mental status is not yet improved and he is not able to tolerate p.o. so we'll continue insulin infusion for now. Will discuss with the hospitalist team as his DKA appears improved and he may be eligible to downgrade to PCU status. He was profoundly hypothermic on presentation and demonstrated probable hypothyroidism with an elevated TSH and low T4. He'll be placed on hydrocortisone 50 mg twice a day as well as 25 mcg of Synthroid daily. Outpatient follow-up is recommended. HEME -slight decrease in hemoglobin and hematocrit likely related to volume overnight. No evidence of bleeding. ID -no evidence of infection. Antibiotics will be discontinued. LINES/IV ACCESS - Peripheral IVs in place No indication at this time for central venous access or arterial access Continue to monitor DVT PROPHYLAXIS - subcu heparin given kidney function. CCT: 45 minutes critical care time. The patient is critically ill with multiorgan system dysfunction. Case was discussed with bedside critical care nurse as well as on multidisciplinary rounds. Admission and Anticipated Discharge Date Admission Date: May 10, 2021 Subjective Patient is encephalopathic but mental status is improved from yesterday. He is able to briefly orient to voice but is not following any commands. Review of Systems Review of Systems: Unobtainable due to reduced consciousness Physical Exam Constitutional: + cachectic, + frail appearing, + lethargic and + malnourished Neck: trachea midline, no thyromegaly Respiratory: normal respiratory effort, lungs clear to auscultation Cardiovascular: Heart Sounds: normal S1, normal S2 and + murmur Extremities: no edema Gastrointestinal (Abdomen): normal bowel sounds, soft, nontender, no hepatosplenomegaly Musculoskeletal: Extremities: extremities normal to inspection Skin: no rashes, warm and dry Neurologic: Lethargic and slightly obtunded Lymphatic: no cervical lymphadenopathy Results & Data Results & Data ([facility]) Vital Signs (Past 12 Hours) Vital Signs Temp Pulse Resp Pulse Ox 05/11/21 06:00 37.1 C 102 H 17 99 05/11/21 05:00 37.0 C 102 H 21 98 05/11/21 04:48 110 H 05/11/21 04:00 37.1 C 103 H 18 97 05/11/21 03:00 36.9 C 100 H 19 96 05/11/21 02:00 36.7 C 100 H 17 97 05/11/21 01:00 36.4 C L 97 H 18 98 05/11/21 00:00 36.4 C L 104 H 20 100 05/10/21 23:00 36.6 C 107 H 23 100 05/10/21 22:00 36.7 C 108 H 22 100 05/10/21 21:00 36.8 C 109 H 21 99 Critical Care Results & Data Vital Signs (Past 12 Hours) Vital Signs Temp Pulse Resp Pulse Ox 05/11/21 06:00 37.1 C 102 H 17 99 05/11/21 05:00 37.0 C 102 H 21 98 05/11/21 04:48 110 H 05/11/21 04:00 37.1 C 103 H 18 97 05/11/21 03:00 36.9 C 100 H 19 96 05/11/21 02:00 36.7 C 100 H 17 97 05/11/21 01:00 36.4 C L 97 H 18 98 05/11/21 00:00 36.4 C L 104 H 20 100 05/10/21 23:00 36.6 C 107 H 23 100 05/10/21 22:00 36.7 C 108 H 22 100 05/10/21 21:00 36.8 C 109 H 21 99 Lab & Micro Results (Past 24 Hours) RBC 3.78 M/uL (4.7-6.1) L 05/11/21 WBC 7.21 K/uL (4.8-10.8) 05/11/21 Hgb 11.5 g/dL (14.0-18.0) L 05/11/21 Hct 33.9 % (42-52) L 05/11/21 MCV 89.7 fL (80-100) 05/11/21 MCH 30.4 pg (25-34) 05/11/21 MCHC 33.9 g/dL (32-36) 05/11/21 RDW Standard Deviation 39.0 fL (36.4-46.3) 05/11/21 RDW Coefficient of Variation 12.0 % (11.5-14.5) 05/11/21 Plt Count 101 K/uL (130-400) L 05/11/21 MPV 10.1 fL (7.4-10.4) 05/11/21 Neutrophils (%) (Auto) 65.3 % 05/11/21 Lymphocytes (%) (Auto) 9.2 % 05/11/21 Monocytes # (Auto) 1.81 K/uL (0.11-0.59) H 05/11/21 Eosinophils # (Auto) 0.01 K/uL (0-0.5) 05/11/21 Immature Granulocyte % (Auto) 0.3 % 05/11/21 Neutrophils # (Auto) 4.71 K/uL (1.4-6.5) 05/11/21 Lymphocytes # (Auto) 0.66 K/uL (1.2-3.4) L 05/11/21 Monocytes # (Auto) 1.81 K/uL (0.11-0.59) H 05/11/21 Eosinophils # (Auto) 0.01 K/uL (0-0.5) 05/11/21 Basophils # (Auto) 0.00 K/uL (0-0.2) 05/11/21 Immature Granulocyte # (Auto) 0.02 K/uL (0.00-0.02) 05/11/21 Echinocytes 1+ 05/10/21 Na 145 mmol/L (136-145) 05/11/21 K 4.1 mmol/L (3.5-5.1) 05/11/21 Cl 121 mmol/L (98-107) H 05/11/21 CO2 18 mmol/L (21-32) L 05/11/21 Anion Gap 6.0 (3-11) 05/11/21 BUN 41 mg/dl (7-18) H 05/11/21 Creatinine 2.36 mg/dl (0.6-1.4) H 05/11/21 Estimated GFR ( Amer) 32.5 ml/min 05/11/21 Estimated GFR (Non-Af Amer) 28.0 ml/min 05/11/21 BUN/Creatinine Ratio 17.2 (10-20) 05/11/21 Glu 230 mg/dl (70-99) H 05/11/21 Ca 9.0 mg/dl (8.5-10.1) 05/11/21 Phosphorus Level 1.0 mg/dl (2.5-4.9) L* 05/11/21 Total Bilirubin 0.6 mg/dl (0.2-1) 05/10/21 Direct Bilirubin 0.1 mg/dl (0-0.2) 05/10/21 AST 32 U/L (15-37) 05/10/21 ALT 26 (12-78) 05/10/21 Alkaline Phosphatase 95 U/L (45-117) 05/10/21 TP 6.5 gm/dl (6.4-8.2) 05/10/21 Albumin 3.1 gm/dl (3.4-5.0) L 05/10/21 Mg 1.7 mg/dl (1.8-2.4) L 05/11/21 03:58 05/11/21 Calcium Level 9.0 mg/dl (8.5-10.1) 05/11/21 03:58 05/11/21 Prothromb Time International Ratio 1.1 (0.9-1.1) 05/10/21 11:36 05/10/21 Venous Blood pH 7.29 (7.36-7.41) L 05/11/21 08:05 05/11/21 Venous Blood Partial Pressure CO2 33 mmHg (38-50) L 05/10/21 12:41 05/10/21 Venous Blood Partial Pressure O2 38 mmHg 05/10/21 12:41 05/10/21 Venous Blood HCO3 7 mmol/L 05/10/21 12:41 05/10/21 Venous Blood Base Excess -25.5 mEq/L 05/10/21 12:41 05/10/21 Venous Blood Oxygen Saturation 61.3 % 05/10/21 12:41 05/10/21 Blood Gas Barometric Pressure 744.1 mm/Hg 05/10/21 12:41 05/10/21 Blood Gas Barometric Pressure 744.1 mm/Hg 05/10/21 12:41 05/10/21 Diagnostic Findings (Past 24 Hours) Cervical Spine CT 05/10/21 11:27 CT cervical spine wo con CLINICAL HISTORY: 65 years-old Male with found down ams. Acute neck injury status post fall COMPARISON: Head CT of same day.. TECHNIQUE: Multiple axial CT images of the cervical spine were obtained without contrast. A dose lowering technique was utilized adhering to the principles of ALARA. FINDINGS: Mild mid cervical dextroscoliosis. Multilevel intervertebral disc space narrowing, severe at C6 or C7. 3 mm anterolisthesis C4 on C5 and C7 on T1 is likely secondary to chronic facet arthrosis. There is severe multilevel facet arthrosis with degenerative bony fusion of the right C2-C3 facets. Multilevel neural foraminal narrowing. No acute fracture or subluxation. Lung apices are clear. Calcified plaque of the carotid bulbs. No prevertebral edema. IMPRESSION: No acute cervical spine fracture or subluxation. ACT 112: Negative or not required by law. The above report was generated using voice recognition software. It may contain grammatical, syntax or spelling errors. Electronically signed by: Luigi Corcoran M.D. 05/10/2021 12:08 PM Chest X-Ray 05/10/21 11:27 SINGLE VIEW CHEST CLINICAL HISTORY: Fall. FINDINGS: An AP, portable, supine chest radiographs are obtained. No prior studies are available for comparison at the time of dictation. The cardiomediastinal silhouette is unremarkable. Pneumomediastinum is observed. Bibasilar atelectasis is noted. No airspace consolidation or large pleural effusion is identified. No definite pneumothorax is seen. There are age indeterminant left-sided rib fractures which may be acute. IMPRESSION: 1. There is pneumomediastinum. 2. No definite pneumothorax is seen. 3. Age-indeterminate left-sided rib fractures may be acute. 4. No airspace consolidation or large pleural effusion is identified. ACT 112: Negative or not required by law. Electronically signed by: Zi Guido M.D. 05/10/2021 11:[address] 05/10/21 11:27 CT head/brain wo con CLINICAL HISTORY: 65 years-old Male with found down ams. Acutely altered mental status with fall TECHNIQUE: Multiple axial CT images of the head were obtained without contrast. A dose lowering technique was utilized adhering to the principles of ALARA. CT DOSE: 1780.74 mGycm COMPARISON: CT cervical spine of same day FINDINGS: Motion degraded exam. No acute intracranial hemorrhage, midline shift, intracranial mass, hydrocephalus, territorial ischemia or abnormal extra-axial collection. The lucent changes of the brain parenchyma. The calvarium is intact. The paranasal sinuses, mastoid air cells, and middle ear cavities are clear. IMPRESSION: Motion degraded exam. No acute intracranial abnormality or calvarial fracture. ACT 112: Negative or not required by law. The above report was generated using voice recognition software. It may contain grammatical, syntax or spelling errors. Electronically signed by: Luigi Corcoran M.D. 05/10/2021 12:04 PM Pelvis X-Ray 05/10/21 11:27 XR pelvis 1-2V routine HISTORY: 65 years-old Male found down ams acute pelvic pain status post fall COMPARISON: None TECHNIQUE: Portable AP view of the pelvis FINDINGS: Mild to moderate osteoarthritis of the hips. No acute fracture, dislocation or avascular necrosis. Vascular calcifications. Degenerative changes of the imaged lumbar spine. IMPRESSION: No acute fracture. ACT 112: Negative or not required by law. The above report was generated using voice recognition software. It may contain grammatical, syntax or spelling errors. Electronically signed by: Luigi Corcoran M.D. 05/10/2021 11:56 AM Abdomen/Pelvis CT 05/10/21 11:[address] WITHOUT CONTRAST CT DOSE: 458.44 mGycm HISTORY: Acute abdominal trauma. The patient was found down and has acutely altered mental status. found down ams TECHNIQUE: Multiaxial CT images of the abdomen and pelvis were performed without contrast. A dose lowering technique was utilized adhering to the principles of ALARA. COMPARISON STUDY: Chest radiograph of same day FINDINGS: Nondependent mild bibasilar groundglass densities of the lower lobes. Limited study secondary to upper extremity positioning, lack of significant intra- abdominal fat and lack of contrast. Artifact from telemetry leads also limits the study. The unenhanced spleen,, pancreas, adrenal glands and gallbladder are unremarkable. There are several hepatic cysts measuring up to 11 mm. Subcentimeter hepatic hypodensities are too small to characterize. There are least 3 nonobstructing calculi of the right kidney which measure up to 4 mm. 2 mm calculus of the inferior pole left kidney. No hydronephrosis or ureteral calculi identified. Mild to moderate circumferential wall thickening of the urinary bladder with prostamegaly. Atherosclerosis of the aorta. No adenopathy identified. Healing subacute appearing minimally displaced fracture of the anterolateral left seventh and eighth ribs. IMPRESSION: 1. Limited exam as above. 2. Nondependent bibasilar groundglass densities are suspicious for an infectious or inflammatory pneumonitis. Atelectasis considered less likely. 3. Nonobstructing bilateral nephrolithiasis. 4. Healing subacute fractures of the anterolateral left seventh and eighth ribs. 5. Prostamegaly with suggested chronic bladder outlet obstruction. 6. Additional findings as above. ACT 112: Negative or not required by law. The above report was generated using voice recognition software. It may contain grammatical, syntax or spelling errors. Electronically signed by: Luigi Corcoarn M.D. 05/10/2021 12:41 PM Chest X-Ray 05/10/21 17:00 XR chest 1V portable HISTORY: Follow up possible pneumomediastinum. COMPARISON: Chest 05/10/2021. FINDINGS: No pneumothorax. No pleural fusions. No pneumomediastinum identified. The heart is top normal in size. This mildly tortuous thoracic aorta. Subacute left-sided rib fractures are again noted. The upper lung zones are clear. A few bibasilar densities favor subsegmental atelectasis. No evidence for pulmonary edema. IMPRESSION: 1. No pneumothorax or pneumomediastinum. 2. Subacute left-sided rib fractures are again noted. ACT 112: Negative or not required by law. Electronically signed by: Helio Bhardwaj M.D. 05/10/2021 5:23 PM Chest X-Ray 05/11/21 07:00 SINGLE VIEW CHEST CLINICAL HISTORY: Pneumomediastinum Covid. FINDINGS: An AP, portable, upright chest radiograph is compared to study dated 05/10/2021. Correlation is made with abdominal CT dated 05/10/2021. The heart is mildly enlarged. The pulmonary vasculature is noncongested. There mild left basilar opacities. No large pleural effusion or pneumothorax is seen. The skeletal structures are osteopenic. Subacute left-sided rib fractures are again noted. IMPRESSION: 1. No pneumothorax or pneumomediastinum. 2. Mild left basilar opacities are unchanged. ACT 112: Negative or not required by law. Electronically signed by: Zi Guido M.D. 05/11/2021 7:52 AM I & O Totals 24 Hours 05/10/21 05/11/21 05/12/21 06:59 06:59 06:59 Intake Total 5926.080 / 5926.080 2360.333 / 2360.333 Output Total 2276 / 2276 Balance 3650.080 / 3650.080 2360.333 / 2360.333 Cumulative 05/10/21 11:11 thru 05/11/21 08:21 Intake Total 8286.413 Output Total 2276 Balance 6010.413 RT Ventilator Mngmt (Last Documented) Ventilator Ordered Settings Respiratory Rate 17 05/11/21 06:00 Ventilator - PT Measurements Respiratory Rate 17 Coding Level of Care Code Critical Care 1st 30-74 mins Diagnoses Admitted to intensive care unit Z78.9 DKA (diabetic ketoacidosis) E11.11 Diabetes mellitus complication detail: with coma Diabetes mellitus type: type 2 Hypothermia T68.XXXA Encounter type: initial encounter Pancreatitis K85.90 Acute pancreatitis complication: unspecified Chronicity: acute Pancreatitis type: unspecified pancreatitis type Metabolic acidosis E87.2 CODY (acute kidney injury) N17.9 Tobacco abuse Z72.0 ETOH abuse F10.10 Diabetes E11.9 Time Spent (min) 45 (1) DKA (diabetic ketoacidosis) Diabetes mellitus complication detail: with coma Diabetes mellitus type: type 2 Qualified Code(s): E11.11 - Type 2 diabetes mellitus with ketoacidosis with coma (2) Hypothermia Encounter type: initial encounter Qualified Code(s): T68.XXXA - Hypothermia, initial encounter (3) Pancreatitis Acute pancreatitis complication: unspecified Chronicity: acute Pancreatitis type: unspecified pancreatitis type Qualified Code(s): K85.90 - Acute pancreatitis without necrosis or infection, unspecified
[2021-05-11] MEDS ORDERED: SODIUM PHOSPHATE 3 MMOL/1 ML INFUSION IV STA (08:25)
[2021-05-11] MEDS: PIPERACILLIN/TAZOBACTAM 4.5 GM in DEXTROSE 5% 100 ML IV SCH (08:34)
[2021-05-11] MEDS: FOLIC ACID 1 MG in SYRINGE 9.8 ML IV SCH (08:35)
[2021-05-11] MEDS: THIAMINE HCL 100 MG in SYRINGE 9 ML IV SCH ×2 (08:35→20:18)
[2021-05-11] MEDS: INSULIN ASPART PER UNIT SC SCH ×4 (08:36→17:56)
[2021-05-11] MEDS ORDERED: SODIUM PHOSPHATE 24 MMOL in SODIUM CHLORIDE 0.9% 500 ML IV ONE (08:45)
[2021-05-11 08:48] LABS: BUN Creatinine Ratio 16.8 (10-20); Calcium 8.6 mg/dl (8.5-10.1); Creatinine Clr Calc Pharmacy 24.8 ml/min; Est GFR (Non-African American) 28.5 ml/min; Potassium 4.1 mmol/L (3.5-5.1)
[2021-05-11 09:00] LABS: Phosphorus 1.2 mg/dl (2.5-4.9)
[2021-05-11] MEDS ORDERED: POTASSIUM PHOSPHATE 24 MMOL in SODIUM CHLORIDE 0.9% 500 ML IV ONE (10:00)
[2021-05-11] MEDS: HYDROCORTISONE SOD 50 MG in SYRINGE 0 ML IV SCH ×2 (10:59→20:18)
[2021-05-11] MEDS: LEVOTHYROXINE SODIUM 25 MCG in SYRINGE 0 ML IV SCH (11:00)
[2021-05-11 11:45] LABS: BUN Creatinine Ratio 17.9 (10-20); Calcium 9.1 mg/dl (8.5-10.1); Creatinine Clr Calc Pharmacy 27.1 ml/min; Est GFR (African American) 36.8 ml/min; Est GFR (Non-African American) 31.7 ml/min; Magnesium 2.1 mg/dl (1.8-2.4); Potassium 4.2 mmol/L (3.5-5.1)
--- NOTE | 2021-05-11 11:45 | Pharmacy Report ---
Pharmacy Glycemic Short Note 2 - Date of Service May 11, 2021 - Glycemic Short BSG Results (Last 24 hours): 05/10/21 05/10/21 05/10/21 11:29 11:36 11:41 Glucose 1134 H* POC Glucose > 600 H* POC Glucose (other) > 700 H* 05/10/21 05/10/21 05/10/21 13:29 13:53 16:32 Glucose 952 H* 705 H* POC Glucose > 600 H* POC Glucose (other) 05/10/21 05/10/21 05/10/21 18:25 19:00 19:54 Glucose 531 H* POC Glucose 589 H* 577 H* POC Glucose (other) 05/10/21 05/10/21 05/10/21 20:07 21:01 22:01 Glucose POC Glucose 536 H* 452 H* 447 H* POC Glucose (other) 05/10/21 05/10/21 05/11/21 23:03 23:32 00:08 Glucose 363 H* POC Glucose 385 H* 379 H* POC Glucose (other) 05/11/21 05/11/21 05/11/21 01:09 02:01 03:02 Glucose POC Glucose 323 H* 349 H* 225 H POC Glucose (other) 05/11/21 05/11/21 05/11/21 03:16 03:58 04:00 Glucose 230 H POC Glucose 280 H 229 H POC Glucose (other) 05/11/21 05/11/21 05/11/21 05:02 06:00 08:05 Glucose 191 H POC Glucose 247 H 270 H POC Glucose (other) 05/11/21 05/11/21 05/11/21 09:08 11:02 11:13 Glucose POC Glucose 168 H 110 H 121 H POC Glucose (other) OUTPATIENT ANTIDIABETIC REGIMEN: * metformin 1000mg daily * glipizide 5mg daily * A1C (05/11)- 15.3 ASSESSMENT: * 65 YOM with a history of EtOH abuse and diabetes who presented to the ED unresponsive, found down at home by girlfriend. Pharmacy consulted to manage insulin therapy in setting of presumed DKA. Initial blood gas 6.88/30/51/5, AG- 27. * Insulin infusion initiated yesterday evening per DKA protocol. Novolog on board for carb coverage per insulin infusion calculator. Pt currently NPO and still with altered mental status. Hydrocortisone 50mg BID added today. * IVF dextrose containing given BSG within goal range. BSG goal adjusted to 150- 250mg/dL today. * Plan for transition to SQ once BSG <200mg/dL, AG <12, Bicarb >/=15mEq/L, and pH >7.3. PLAN FOR INPATIENT GLYCEMIC CONTROL: * Hold outpatient oral diabetes medications * Basal insulin * regular insulin infusion (per calculator) * Bolus insulin * NovoLog per insulin infusion calculator Q6hrs while NPO * Goal Range: Low 150 mg/dL - High 250 mg/dL PLAN FOR DISCHARGE: * TBD
[2021-05-11 11:56] LABS: Phosphorus 1.3 mg/dl (2.5-4.9)
[2021-05-11] MEDS: INSULIN REGULAR 250 UNITS in SODIUM CHLORIDE 0.9% 247.5 ML IV SCH (16:07)
--- NOTE | 2021-05-11 16:34 | Electrocardiogram Report ---
Test Reason : Blood Pressure : / mmHG Vent. Rate : 077 BPM Atrial Rate : 077 BPM P-R Int : 244 ms QRS Dur : 098 ms QT Int : 432 ms P-R-T Axes : 096 100 110 degrees QTc Int : 488 ms Suspect arm lead reversal, interpretation assumes no reversal Sinus rhythm with 1st degree A-V block Septal infarct , age undetermined Lateral infarct Abnormal ECG No previous ECGs available Confirmed by Red Camarena ([id number]) on 05/11/2021 4:33:41 PM Referred By: REFERRED SELF Confirmed By:Red Camarena
--- NOTE | 2021-05-11 16:42 | Electrocardiogram Report ---
Test Reason : Blood Pressure : / mmHG Vent. Rate : 091 BPM Atrial Rate : 091 BPM P-R Int : 242 ms QRS Dur : 082 ms QT Int : 368 ms P-R-T Axes : 083 073 -68 degrees QTc Int : 452 ms Poor data quality, interpretation may be adversely affected Sinus rhythm with 1st degree A-V block Low voltage QRS Septal infarct (cited on or before 10-MAY-2021) Abnormal ECG When compared with ECG of 10-MAY-2021 11:33, (unconfirmed) Criteria for Lateral infarct are no longer Present Confirmed by Red Camarena ([id number]) on 05/11/2021 4:42:33 PM Referred By: REFERRED SELF Confirmed By:Red Camarena
--- NOTE | 2021-05-11 21:30 | Hospitalist Progress Note ---
Date of Service May 11, 2021 Assessment & Plan (1) Admitted to intensive care unit: (2) DKA (diabetic ketoacidosis): (3) Metabolic acidosis: (4) CODY (acute kidney injury): (5) Hypothermia: (6) Pancreatitis: (7) COVID: Plan: This is a critically ill 65-year-old male known past medical history of noninsulin-dependent T2DM alcohol abuse tobacco abuse who presented to ED after being found on floor by girlfriend unresponsive. Unknown duration down, last known well prior to girlfriend going to work at approximately 5:30 PM last evening. Diabetic Ketoacidosis Known T2DM, noncompliant Metabolic acidosis Hypothermia currently admitted to ICU Insulin gtt per protocol start NS + 40meq IVF (financial sales consultant changing to 1/2NS + 40meqKCL @ 200cc/hr) serial bmp, vbg, mag, phos hold metformin, glipizide OP A1C 13.4 03/03/21, has been non compliant with meds Broad spectrum antibiotics with vanco/zosyn for now, blood and urine cultures pending further management per financial sales consultant consultation - appreciate their assistance in management of critically ill patient CODY with hypernatremia with corrected serum sodium for glucose baseline cr 1.0 bun/cr 42 and 3.08 likely in setting of profound hypovolemia Elevated Lipase/Pancreatitis lipase 7153, CT a/p w/o evidence of pancreatitis, no evidence of pain to palpation of abdomen continue with fluid resuscitation, repeat lipase in a.m. Sars COV2 + pt w/o resp sx per family, unvaccinated does not meet criteria for remdesivir given renal fxn No dexamethasone since pt is saturated well on RA CT a/p w/ evidence of dependent opacities Pneumomediastinum obtain ct chest saturating well on room air will defer further management to ICU Alcohol abuse awss protocol prn IV ativan IV thiamine and folic acid until able to tolerate PO Tobacco abuse uses smokeless tobacco and cigarettes consider nicotine patch Subacute fracture of L 7th and 8th rib noted on imaging, monitor Diet: NPO Lines: 2 20g and 2 18g, brownlee cath in place DVT ppx: SQ Heparin FULL CODE PCP: Cindi Ca PA-C Plan: Family would like daily updates on patient status Maricarmen Artis (Life Partner) [phone] Vincent Krueger (Brother) [phone] Admission and Anticipated Discharge Date Admission Date: May 10, 2021 Subjective Pt was seen and examined for follow up of unresponsive and DKA Lying in bed with no acute distress drowsy and weak Pt able to open his eyes and not able to say much He kept tossing around Review of Systems Review of Systems: All systems reviewed & are unremarkable except as noted in Subjective Physical Exam Physical Exam: General- drowsiness Head- atraumatic Eyes- PERRL, EOMI, ENT- oropharynx clear Neck- supple, no JVD Lungs- clear to auscultation Heart- regular rhythm; no murmur Abdomen- normal bowel sounds, soft, nontender Extremities- no calf tenderness Neuro- drowsy, PERRL, EOMI; move all extremities Skin- warm & dry Results & Data Results & Data ([facility]) Vital Signs (Past 12 Hours) Vital Signs Temp Pulse Pulse Resp BP BP Pulse Ox 05/11/21 17:55 36.6 C 77 16 153/92 H 100 05/11/21 17:00 36.4 C L 88 17 156/96 H 100 05/11/21 16:00 36.6 C 87 17 150/93 H 100 05/11/21 15:00 36.5 C 82 15 100 05/11/21 14:00 36.8 C 92 H 13 140/94 100 05/11/21 13:00 36.8 C 89 16 164/97 H 100 05/11/21 12:00 36.6 C 87 15 135/88 100 05/11/21 11:22 154/97 H 05/11/21 11:00 36.4 C L 86 15 100 05/11/21 10:52 143/100 H 05/11/21 10:00 36.2 C L 83 15 97 05/11/21 09:52 111/78 (1) DKA (diabetic ketoacidosis) Diabetes mellitus complication detail: with coma Diabetes mellitus type: type 2 Qualified Code(s): E11.11 - Type 2 diabetes mellitus with ketoacidosis with coma (2) Hypothermia Encounter type: initial encounter Qualified Code(s): T68.XXXA - Hypothermia, initial encounter (3) Pancreatitis Acute pancreatitis complication: unspecified Chronicity: acute Pancreatitis type: unspecified pancreatitis type Qualified Code(s): K85.90 - Acute pancreatitis without necrosis or infection, unspecified
[2021-05-12] MEDS: INSULIN ASPART PER UNIT SC SCH ×4 (00:52→17:59)
[2021-05-12] MEDS: D5W AND 1/2NSS + 20MEQ KCL 20 MEQ/1,000 ML BAG IV SCH ×4 (00:54→23:45)
[2021-05-12] MEDS: HEPARIN SOD 5,000 UNIT/0.5 ML VIAL SQ SCH ×3 (06:20→20:48)
[2021-05-12] MEDS: THIAMINE HCL 100 MG in SYRINGE 9 ML IV SCH ×2 (08:01→20:48)
[2021-05-12] MEDS: HYDROCORTISONE SOD 50 MG in SYRINGE 0 ML IV SCH ×2 (08:01→20:47)
[2021-05-12] MEDS: FOLIC ACID 1 MG in SYRINGE 9.8 ML IV SCH (08:01)
[2021-05-12 08:09] LABS: Hematocrit (blood only) 28.8 % (42-52); Mean Corpuscular Hemoglobin 30.7 pg (25-34); Mean Corpuscular Hgb Conc 34.7 g/dL (32-36); Mean Corpuscular Volume 88.3 fL (80-100); RDW Coefficient of Variation 12.4 % (11.5-14.5); RDW Standard Deviation 39.8 fL (36.4-46.3); Red Blood Count 3.26 M/uL (4.7-6.1); White Blood Count 7.47 K/uL (4.8-10.8)
[2021-05-12 08:33] LABS: Platelet Count 76 K/uL (130-400)
[2021-05-12 08:34] LABS: Basophils # (auto) 0.01 K/uL (0-0.2); Basophils % (auto) 0.1 %; Eosinophils # (auto) 0.01 K/uL (0-0.5); Eosinophils % (auto) 0.1 %; Immature Granulocytes # (auto) 0.02 K/uL (0.00-0.02); Immature Granulocytes % (auto) 0.3 %; Lymphocytes % (auto) 16.1 %; Monocytes # (auto) 0.84 K/uL (0.11-0.59); Monocytes % (auto) 11.2 %; Neutrophils # (auto) 5.39 K/uL (1.4-6.5); Neutrophils % (auto) 72.2 %; Platelet Estimate Decreased (Normal)
[2021-05-12 08:43] LABS: Albumin Level 2.8 gm/dl (3.4-5.0); BUN Creatinine Ratio 18.7 (10-20); Bilirubin Direct 0.1 mg/dl (0-0.2); Bilirubin,Total 0.3 mg/dl (0.2-1); Calcium 9.1 mg/dl (8.5-10.1); Creatinine Clr Calc Pharmacy 35.3 ml/min; Est GFR (African American) 56.2 ml/min; Est GFR (Non-African American) 48.5 ml/min; Phosphorus 2.6 mg/dl (2.5-4.9); Total Protein 6.1 gm/dl (6.4-8.2)
--- NOTE | 2021-05-12 14:56 | Pharmacy Report ---
Pharmacy Glycemic Short Note 2 - Date of Service May 12, 2021 - Glycemic Short BSG Results (Last 24 hours): 05/11/21 05/11/21 05/11/21 15:14 16:12 16:25 Glucose POC Glucose 118 H 92 88 05/11/21 05/11/21 05/11/21 16:43 17:49 18:46 Glucose POC Glucose 131 H 155 H 197 H 05/11/21 05/11/21 05/11/21 19:45 20:42 21:42 Glucose POC Glucose 156 H 150 H 130 H 05/11/21 05/12/21 05/12/21 22:41 00:44 02:38 Glucose POC Glucose 129 H 126 H 135 H 05/12/21 05/12/21 05/12/21 04:32 06:41 07:22 Glucose 95 POC Glucose 143 H 127 H 05/12/21 10:38 Glucose POC Glucose 118 H OUTPATIENT ANTIDIABETIC REGIMEN: * metformin 1000mg daily * glipizide 5mg daily * A1C (05/11)- 15.3 ASSESSMENT: 05/12 * Pt stable on IV insulin infusion at 1.8 units/hr (equates to 43.2 units of BASAL per day as pt NPO) * Provider would like to advance diet but pt is not interested in eating - will continue IVF with D5W * Adequate to start conservative transition from IV to SQ insulin since pt on drip for ~48hrs, labs WNL * Will give Lantus 35 units SQ x 1 dose now- this is ~ 80% of calculated total daily basal dose. Continue with NovoLog Q6hrs to make up any additional insulin needed with dose reduction in conversion. 05/11 * 65 YOM with a history of EtOH abuse and diabetes who presented to the ED unresponsive, found down at home by girlfriend. Pharmacy consulted to manage insulin therapy in setting of presumed DKA. Initial blood gas 6.88/30/51/5, AG- 27. * Insulin infusion initiated yesterday evening per DKA protocol. Novolog on board for carb coverage per insulin infusion calculator. Pt currently NPO and still with altered mental status. Hydrocortisone 50mg BID added today. * IVF dextrose containing given BSG within goal range. BSG goal adjusted to 150- 250mg/dL today. * Plan for transition to SQ once BSG <200mg/dL, AG <12, Bicarb >/=15mEq/L, and pH >7.3. PLAN FOR INPATIENT GLYCEMIC CONTROL: * Hold outpatient oral diabetes medications * Basal insulin * Lantus 35 units SQ x 1 dose * Further dosing TBD * Bolus insulin * NovoLog per insulin infusion calculator Q6hrs while NPO * Goal Range: Low 110 mg/dL - High 140 mg/dL * CF = 35 mg/dl/unit * CR = 12 PLAN FOR DISCHARGE: * TBD
[2021-05-12] MEDS ORDERED: INSULIN GLARGINE SOLOSTAR 100 UNITS/ML 3 ML PEN SC ONE (15:00)
[2021-05-12] MEDS ORDERED: DC IV INSULIN INFUSION 1 EA DEVI ONE (18:00)
[2021-05-12] MEDS: INSULIN REGULAR 250 UNITS in SODIUM CHLORIDE 0.9% 247.5 ML IV SCH (18:00)
--- NOTE | 2021-05-12 21:09 | Hospitalist Progress Note ---
Date of Service May 12, 2021 Assessment & Plan (1) Admitted to intensive care unit: (2) DKA (diabetic ketoacidosis): (3) Metabolic acidosis: (4) CODY (acute kidney injury): (5) Hypothermia: (6) Pancreatitis: (7) COVID: Plan: This is a critically ill 65-year-old male known past medical history of noninsulin-dependent T2DM alcohol abuse tobacco abuse who presented to ED after being found on floor by girlfriend unresponsive. Unknown duration down, last known well prior to girlfriend going to work at approximately 5:30 PM last evening. Diabetic Ketoacidosis Known T2DM, noncompliant Metabolic acidosis Hypothermia Mostly due to medication noncompliance was admitted in the ICU. Insulin gtt per DKA protocol Most recent hemoglobin A1c 15.3 on 05/11/21 Closed Anion gap Pharmacy on board for glycemic management insulin insulin drip was discontinued and transition to basal insulin Continue monitor closely CODY Mostly due to dehydration Creatinine on admission 3.08 with baseline creatinine 1 Received IV fluid creatinine 1.5 today Continue monitor BMP Electrolyte imbalance Potassium 3 today Has to be read likely 72 K replaced Elevated Lipase/Pancreatitis lipase 7153, CT a/p w/o evidence of pancreatitis, no evidence of pain to palpation of abdomen continue with fluid resuscitation Lipase trending down 3739 Denies any abdominal pain Sars COV2 + pt w/o resp sx per family, unvaccinated does not meet criteria for remdesivir given renal fxn No dexamethasone since pt is saturated well on RA CT a/p w/ evidence of dependent opacities Alcohol abuse We will change to p.o. thiamine and folic acid IV thiamine and folic acid until able to tolerate PO Monitor closely for sign of alcohol withdrawal and DT Counseling on alcohol cessation Tobacco abuse uses smokeless tobacco and cigarettes Counseling on smoking cessation Subacute fracture of L 7th and 8th rib noted on imaging, monitor continue incentive spirometry DVT ppx: SQ Heparin FULL CODE PCP: Cindi Ca PA-C Plan: Family would like daily updates on patient status Maricarmen Artis (Life Partner) [phone] Vincent Krueger (Brother) [phone] Admission and Anticipated Discharge Date Admission Date: May 10, 2021 Subjective Pt was seen and examined for follow up of unresponsive and DKA Lying in bed with no acute distress Patient said that he feels much better He did not remember what happened prior to coming to the hospital Denies any chest pain, palpitation, dizziness, shortness of breath and fever Review of Systems Review of Systems: All systems reviewed & are unremarkable except as noted in Subjective Physical Exam Physical Exam: General-no acute distress Head- atraumatic Eyes- PERRL, EOMI, ENT- oropharynx clear Neck- supple, no JVD Lungs- clear to auscultation Heart- regular rhythm; no murmur Abdomen- normal bowel sounds, soft, nontender Extremities- no calf tenderness Neuro- Alert, awake, PERRL, EOMI; move all extremities Skin- warm & dry Results & Data Results & Data ([facility]) Vital Signs (Past 12 Hours) Vital Signs Temp Pulse Pulse Resp BP BP Pulse Ox 05/12/21 19:09 36.4 C L 70 16 120/76 99 05/12/21 18:00 65 05/12/21 17:00 72 18 156/96 H 97 05/12/21 16:12 36.3 C L 78 18 134/86 97 05/12/21 16:00 72 05/12/21 12:15 36.8 C 79 16 138/86 97 (1) DKA (diabetic ketoacidosis) Diabetes mellitus complication detail: with coma Diabetes mellitus type: type 2 Qualified Code(s): E11.11 - Type 2 diabetes mellitus with ketoacidosis with coma (2) Hypothermia Encounter type: initial encounter Qualified Code(s): T68.XXXA - Hypothermia, initial encounter (3) Pancreatitis Acute pancreatitis complication: unspecified Chronicity: acute Pancreatitis type: unspecified pancreatitis type Qualified Code(s): K85.90 - Acute pancreatitis without necrosis or infection, unspecified
[2021-05-12] MEDS ORDERED: POTASSIUM CHLORIDE 10 MEQ TABCR PO STA (21:25)
[2021-05-13] MEDS: INSULIN ASPART PER UNIT SC SCH ×6 (00:12→21:01)
[2021-05-13] MEDS: HEPARIN SOD 5,000 UNIT/0.5 ML VIAL SQ SCH ×3 (05:51→21:01)
[2021-05-13 06:37] LABS: Hematocrit (blood only) 26.9 % (42-52); Hemoglobin 9.2 g/dL (14.0-18.0); Mean Corpuscular Hemoglobin 30.6 pg (25-34); Mean Corpuscular Hgb Conc 34.2 g/dL (32-36); Mean Corpuscular Volume 89.4 fL (80-100); RDW Coefficient of Variation 12.8 % (11.5-14.5); Red Blood Count 3.01 M/uL (4.7-6.1); White Blood Count 5.66 K/uL (4.8-10.8)
[2021-05-13 06:42] LABS: Mean Platelet Volume 10.5 fL (7.4-10.4); Platelet Count 70 K/uL (130-400)
[2021-05-13 07:06] LABS: Immature Granulocytes # (auto) 0.02 K/uL (0.00-0.02); Immature Granulocytes % (auto) 0.4 %; Lymphocytes # (auto) 1.01 K/uL (1.2-3.4); Lymphocytes % (auto) 17.8 %; Monocytes # (auto) 0.52 K/uL (0.11-0.59); Monocytes % (auto) 9.2 %; Neutrophils # (auto) 4.11 K/uL (1.4-6.5); Neutrophils % (auto) 72.6 %
[2021-05-13 07:14] LABS: Albumin Level 2.5 gm/dl (3.4-5.0); BUN Creatinine Ratio 21.9 (10-20); Bilirubin Direct 0.1 mg/dl (0-0.2); Bilirubin,Total 0.3 mg/dl (0.2-1); Calcium 8.7 mg/dl (8.5-10.1); Creatinine Clr Calc Pharmacy 60.8 ml/min; Est GFR (African American) 91.8 ml/min; Est GFR (Non-African American) 79.2 ml/min; Magnesium 1.8 mg/dl (1.8-2.4); Phosphorus 2.2 mg/dl (2.5-4.9); Potassium 3.1 mmol/L (3.5-5.1); Total Protein 5.5 gm/dl (6.4-8.2)
[2021-05-13] MEDS: D5W AND 1/2NSS + 20MEQ KCL 20 MEQ/1,000 ML BAG IV SCH (08:15)
[2021-05-13] MEDS: THIAMINE HCL 100 MG in SYRINGE 9 ML IV SCH ×2 (08:17→21:00)
[2021-05-13] MEDS: HYDROCORTISONE SOD 50 MG in SYRINGE 0 ML IV SCH ×2 (08:17→21:00)
[2021-05-13] MEDS: FOLIC ACID 1 MG in SYRINGE 9.8 ML IV SCH (08:17)
[2021-05-13] MEDS ORDERED: INSULIN GLARGINE SOLOSTAR 100 UNITS/ML 3 ML PEN SC SCH (09:00)
--- NOTE | 2021-05-13 09:46 | Pharmacy Report ---
Pharmacy Glycemic Short Note 2 - Date of Service May 13, 2021 - Glycemic Short BSG Results (Last 24 hours): 05/12/21 05/12/21 05/12/21 10:38 15:05 16:18 Glucose POC Glucose 118 H 124 H 126 H 05/12/21 05/12/21 05/12/21 17:02 20:10 23:24 Glucose POC Glucose 112 H 85 80 05/13/21 05/13/21 05/13/21 04:03 04:05 05:49 Glucose POC Glucose 238 H 223 H 185 H 05/13/21 05/13/21 06:01 07:23 Glucose 185 H POC Glucose 165 H OUTPATIENT ANTIDIABETIC REGIMEN: * metformin 1000mg daily * glipizide 5mg daily * A1C (05/11)- 15.3 ASSESSMENT: 05/13 * Pt has received 35 units of SQ insulin + IV insulin infusion at average rate of 1.8 units/hr (43.2 units/day) over the past 24hrs * 35 units of basal with Lantus * 0 units of bolus with NovoLog * BSGs well controlled with transition from IV to SQ insulin yesterday. BSGs starting to trend upwards and considered increasing Lantus but d/w provider. Stopping dextrose IVF therefore will continue current lantus dosing again today. Likely dose will need adjusted once steady state is reached. * Still poor PO intake per nursing. Will conservatively adjust insulin daily. 05/12 * Pt stable on IV insulin infusion at 1.8 units/hr (equates to 43.2 units of BASAL per day as pt NPO) * Provider would like to advance diet but pt is not interested in eating - will continue IVF with D5W * Adequate to start conservative transition from IV to SQ insulin since pt on drip for ~48hrs, labs WNL * Will give Lantus 35 units SQ x 1 dose now- this is ~ 80% of calculated total daily basal dose. Continue with NovoLog Q6hrs to make up any additional insulin needed with dose reduction in conversion. 05/11 * 65 YOM with a history of EtOH abuse and diabetes who presented to the ED unresponsive, found down at home by girlfriend. Pharmacy consulted to manage insulin therapy in setting of presumed DKA. Initial blood gas 6.88/30/51/5, AG- 27. * Insulin infusion initiated yesterday evening per DKA protocol. Novolog on board for carb coverage per insulin infusion calculator. Pt currently NPO and still with altered mental status. Hydrocortisone 50mg BID added today. * IVF dextrose containing given BSG within goal range. BSG goal adjusted to 150- 250mg/dL today. * Plan for transition to SQ once BSG <200mg/dL, AG <12, Bicarb >/=15mEq/L, and pH >7.3. PLAN FOR INPATIENT GLYCEMIC CONTROL: * Hold outpatient oral diabetes medications * Basal insulin * No change, Lantus 35 units SQ daily * Bolus insulin * NovoLog per insulin infusion calculator Q6hrs while NPO * Goal Range: Low 110 mg/dL - High 140 mg/dL * CF = 30 mg/dl/unit * CR = 10 PLAN FOR DISCHARGE: * TBD * A1c is greater than or equal to 10% --> consider triple therapy with metformin + basal insulin + (GLP1-RA OR prandial insulin). May need to continue additional antidiabetic agent based on patient specific factors (efficacy, hypo risk, weight gain/loss, side effects, cost) * Scr continues to improve. Recommend continuing metformin although this may not be the best option with chronic alcohol abuse. * GLP1 not likely a good option as alcohol & GLP1 both carry a risk for pancreatitis. * Likely simple SQ basal bolus insulin regimen needed at [place]. Will further discuss with CDE, patient, and provider.
[2021-05-13] MEDS ORDERED: POTASSIUM PHOS 3 MMOL/1 ML INFUSION IV STA (10:32)
[2021-05-13] MEDS ORDERED: POTASSIUM CHLORIDE CRTAB 20 MEQ TABCR PO STA (10:32)
[2021-05-13] MEDS ORDERED: POTASSIUM PHOSPHATE 21 MMOL in SODIUM CHLORIDE 0.9% 500 ML IV ONE (11:00)
--- NOTE | 2021-05-13 22:39 | Hospitalist Progress Note ---
Date of Service May 13, 2021 Assessment & Plan (1) Admitted to intensive care unit: (2) DKA (diabetic ketoacidosis): (3) Metabolic acidosis: (4) CODY (acute kidney injury): (5) Hypothermia: (6) Pancreatitis: (7) COVID: Plan: This is a critically ill 65-year-old male known past medical history of noninsulin-dependent T2DM alcohol abuse tobacco abuse who presented to ED after being found on floor by girlfriend unresponsive. Unknown duration down, last known well prior to girlfriend going to work at approximately 5:30 PM last evening. Diabetic Ketoacidosis Known T2DM, noncompliant Metabolic acidosis Hypothermia Mostly due to medication noncompliance was admitted in the ICU. Insulin gtt per DKA protocol Most recent hemoglobin A1c 15.3 on 05/11/21 Closed Anion gap Pharmacy on board for glycemic management insulin insulin drip was discontinued and transition to basal insulin Continue monitor closely CODY Mostly due to dehydration Creatinine on admission 3.08 with baseline creatinine 1 Received IV fluid creatinine 1 today Continue monitor BMP Electrolyte imbalance Potassium 3.1 today K replaced Today continue monitor BMP Elevated Lipase/Pancreatitis lipase 7153, CT a/p w/o evidence of pancreatitis, no evidence of pain to palpation of abdomen continue with fluid resuscitation Lipase trending down 3739 Denies any abdominal pain Sars COV2 + pt w/o resp sx per family, unvaccinated does not meet criteria for remdesivir given renal fxn No dexamethasone since pt is saturated well on RA CT a/p w/ evidence of dependent opacities Alcohol abuse We will change to p.o. thiamine and folic acid IV thiamine and folic acid until able to tolerate PO Monitor closely for sign of alcohol withdrawal and DT Counseling on alcohol cessation Tobacco abuse uses smokeless tobacco and cigarettes Counseling on smoking cessation Subacute fracture of L 7th and 8th rib noted on imaging, monitor continue incentive spirometry DVT ppx: SQ Heparin FULL CODE PCP: Cindi Ca PA-C Plan: Family would like daily updates on patient status Maricarmen Artis (Life Partner) [phone] Vincent Krueger (Brother) [phone] Admission and Anticipated Discharge Date Admission Date: May 10, 2021 Subjective Pt was seen and examined for follow up of unresponsive and DKA Lying in bed with no acute distress Patient said that he feels much better Denies any chest pain, palpitation, dizziness, shortness of breath and fever Review of Systems Review of Systems: All systems reviewed & are unremarkable except as noted in Subjective Physical Exam Physical Exam: General-no acute distress Head- atraumatic Eyes- PERRL, EOMI, ENT- oropharynx clear Neck- supple, no JVD Lungs- clear to auscultation Heart- regular rhythm; no murmur Abdomen- normal bowel sounds, soft, nontender Extremities- no calf tenderness Neuro- Alert, awake, PERRL, EOMI; move all extremities Skin- warm & dry Results & Data Results & Data ([facility]) Vital Signs (Past 12 Hours) Vital Signs Temp Pulse Pulse Resp BP Pulse Ox 05/13/21 20:46 36.7 C 60 18 116/83 95 05/13/21 17:00 92 H 05/13/21 16:02 70 05/13/21 15:28 85 16 119/79 98 05/13/21 15:12 68 05/13/21 14:43 97 05/13/21 11:51 36.5 C 76 20 103/64 99 05/13/21 11:30 75 (1) DKA (diabetic ketoacidosis) Diabetes mellitus complication detail: with coma Diabetes mellitus type: type 2 Qualified Code(s): E11.11 - Type 2 diabetes mellitus with ketoacidosis with coma (2) Hypothermia Encounter type: initial encounter Qualified Code(s): T68.XXXA - Hypothermia, initial encounter (3) Pancreatitis Acute pancreatitis complication: unspecified Chronicity: acute Pancreatitis type: unspecified pancreatitis type Qualified Code(s): K85.90 - Acute pancreatitis without necrosis or infection, unspecified
[2021-05-14] MEDS: HEPARIN SOD 5,000 UNIT/0.5 ML VIAL SQ SCH ×3 (05:17→20:41)
[2021-05-14] MEDS: FOLIC ACID 1 MG in SYRINGE 9.8 ML IV SCH (09:01)
[2021-05-14] MEDS: HYDROCORTISONE SOD 50 MG in SYRINGE 0 ML IV SCH ×2 (09:01→20:41)
[2021-05-14] MEDS: THIAMINE HCL 100 MG in SYRINGE 9 ML IV SCH ×2 (09:02→20:41)
[2021-05-14] MEDS: INSULIN ASPART PER UNIT SC SCH ×4 (09:09→20:56)
[2021-05-14 10:04] LABS: Hematocrit (blood only) 30.4 % (42-52); Hemoglobin 10.1 g/dL (14.0-18.0); Mean Corpuscular Hemoglobin 30.3 pg (25-34); Mean Corpuscular Hgb Conc 33.2 g/dL (32-36); Mean Corpuscular Volume 91.3 fL (80-100); RDW Standard Deviation 43.7 fL (36.4-46.3); Red Blood Count 3.33 M/uL (4.7-6.1); White Blood Count 2.87 K/uL (4.8-10.8)
[2021-05-14 10:17] LABS: Mean Platelet Volume 10.1 fL (7.4-10.4); Platelet Count 83 K/uL (130-400)
[2021-05-14 10:37] LABS: BUN Creatinine Ratio 24.6 (10-20); Calcium 8.9 mg/dl (8.5-10.1); Creatinine Clr Calc Pharmacy 70.9 ml/min; Est GFR (African American) 106.2 ml/min; Est GFR (Non-African American) 91.6 ml/min
[2021-05-14] MEDS: LEVOTHYROXINE SODIUM 25 MCG in SYRINGE 0 ML IV SCH (10:57)
[2021-05-14] MEDS ORDERED: POTASSIUM CHLORIDE CRTAB 20 MEQ TABCR PO STA (11:06)
[2021-05-14] MEDS ORDERED: INSULIN GLARGINE SOLOSTAR 100 UNITS/ML 3 ML PEN SC ONE (12:30)
--- NOTE | 2021-05-14 13:15 | Pharmacy Report ---
Pharmacy Glycemic Short Note 2 - Date of Service May 14, 2021 - Glycemic Short BSG Results (Last 24 hours): 05/13/21 05/13/21 05/14/21 17:13 20:44 07:56 Glucose POC Glucose 165 H 107 H 91 05/14/21 05/14/21 09:15 12:08 Glucose 165 H POC Glucose 203 H OUTPATIENT ANTIDIABETIC REGIMEN: * metformin 1000mg daily * glipizide 5mg daily * A1C (05/11)- 15.3 ASSESSMENT: 05/14 * Pt has received 47 units of SQ insulin * 35 units of basal with Lantus * 12 units of bolus with NovoLog * BSGs yesterday were [phone] and fasting today is 91 mg/dL. * Concern with fasting today that was almost 100 points lower than yesterday's fasting. Held Lantus until BSGs rebounded. Lunch BSG was 203 mg/dL indicating that patient's blood sugars had recovered. Lantus 25 units SQ x 1 given (roughly 30% reduction). * Continue Novolog. 05/13 * Pt has received 35 units of SQ insulin + IV insulin infusion at average rate of 1.8 units/hr (43.2 units/day) over the past 24hrs * 35 units of basal with Lantus * 0 units of bolus with NovoLog * BSGs well controlled with transition from IV to SQ insulin yesterday. BSGs starting to trend upwards and considered increasing Lantus but d/w provider. Stopping dextrose IVF therefore will continue current lantus dosing again today. Likely dose will need adjusted once steady state is reached. * Still poor PO intake per nursing. Will conservatively adjust insulin daily. 05/12 * Pt stable on IV insulin infusion at 1.8 units/hr (equates to 43.2 units of BASAL per day as pt NPO) * Provider would like to advance diet but pt is not interested in eating - will continue IVF with D5W * Adequate to start conservative transition from IV to SQ insulin since pt on drip for ~48hrs, labs WNL * Will give Lantus 35 units SQ x 1 dose now- this is ~ 80% of calculated total daily basal dose. Continue with NovoLog Q6hrs to make up any additional insulin needed with dose reduction in conversion. 05/11 * 65 YOM with a history of EtOH abuse and diabetes who presented to the ED unresponsive, found down at home by girlfriend. Pharmacy consulted to manage insulin therapy in setting of presumed DKA. Initial blood gas 6.88/30/51/5, AG- 27. * Insulin infusion initiated yesterday evening per DKA protocol. Novolog on board for carb coverage per insulin infusion calculator. Pt currently NPO and still with altered mental status. Hydrocortisone 50mg BID added today. * IVF dextrose containing given BSG within goal range. BSG goal adjusted to 150- 250mg/dL today. * Plan for transition to SQ once BSG <200mg/dL, AG <12, Bicarb >/=15mEq/L, and pH >7.3. PLAN FOR INPATIENT GLYCEMIC CONTROL: * Hold outpatient oral diabetes medications * Basal insulin * Lantus 25 units SQ daily * Bolus insulin * NovoLog per insulin infusion calculator Q6hrs while NPO * Goal Range: Low 110 mg/dL - High 140 mg/dL * CF = 35 mg/dl/unit * CR = 11 PLAN FOR DISCHARGE: * TBD * A1c is greater than or equal to 10% --> consider triple therapy with metformin + basal insulin + (GLP1-RA OR prandial insulin). May need to continue additional antidiabetic agent based on patient specific factors (ef ficacy, hypo risk, weight gain/loss, side effects, cost) * Scr continues to improve. Recommend continuing metformin although this may not be the best option with chronic alcohol abuse. * GLP1 not likely a good option as alcohol & GLP1 both carry a risk for pancreatitis. * Likely simple SQ basal bolus insulin regimen needed at [place]. Will further discuss with CDE, patient, and provider.
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
[2021-05-15] MEDS: HEPARIN SOD 5,000 UNIT/0.5 ML VIAL SQ SCH (06:16)
[2021-05-15 07:14] LABS: BUN Creatinine Ratio 24.8 (10-20); Creatinine Clr Calc Pharmacy 67.8 ml/min; Est GFR (African American) 104.2 ml/min; Est GFR (Non-African American) 89.9 ml/min; Potassium 3.9 mmol/L (3.5-5.1)
[2021-05-15] MEDS: FOLIC ACID 1 MG in SYRINGE 9.8 ML IV SCH (07:42)
[2021-05-15] MEDS: HYDROCORTISONE SOD 50 MG in SYRINGE 0 ML IV SCH (07:42)
[2021-05-15] MEDS: THIAMINE HCL 100 MG in SYRINGE 9 ML IV SCH (07:42)
[2021-05-15] MEDS: INSULIN ASPART PER UNIT SC SCH ×2 (08:16→12:32)
--- NOTE | 2021-05-25 08:27 | Discharge Summary ---
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 Hx is provided from family members and ED provider. According to girlfriend he was not himself the past 3 days. He was more quiet and not eating and drinking. She admits he has lost a lot of weight over the last 2 months. He does not take his metformin as prescribed. She admits to him drinking 1 case of beer a day and occasional melia wing tobacco/cigarettes. She denies any recent fever or illness. He did not have any respiratory sx concerning for covid per family. In ED patient was unresponsive and hypothermic on arrival at 29.0. His GCS was 9 throughout ER stay and therefore was not intubated as he was breathing on her own and saturating well on room air. He otherwise remained hemodynamically stable. His lab work was consistent with a severe metabolic acidosis in setting of diabetic ketoacidosis CODY with creatinine of 3. His glucose on admission was 1134. CT abdomen pelvis reveal nondependent bibasilar groundglass densities concerning for infectious or inflammatory. No acute abnormalities. Chest x-ray revealed pneumomediastinum, no definitive pneumothorax and age-indeterminate left-sided rib fractures may be acute. Head CT was negative for acute abnormality. In route he received 1 L of IV fluid and had additional 2 L of IV fluid in ED. He also received 50 mEq of sodium bicarb. He was started on insulin drip. Patient was started on banana bag given significant alcohol use. He did receive broad- spectrum antibiotics cefepime. Admission Exam Per Admitting Provider -possible kussmaul breathing -minimally responsive to painful stimuli, PERRLA -Lungs: fair air entry b/l with b/l lower lobe crackles -Cardiac: systolic murmur -Abd: ND, soft -MSK: low LE edema Principal Diagnosis Diabetic Ketoacidosis Known T2DM, noncompliant Acute kidney injury Electrolyte imbalance Elevated Lipase/Pancreatitis COVID 19 Alcohol abuse Subacute fracture of Left side 7th and 8th rib Discharge Exam General-no acute distress Head- atraumatic Eyes- PERRL, EOMI, ENT- oropharynx clear Neck- supple, no JVD Lungs- clear to auscultation Heart- regular rhythm; no murmur Abdomen- normal bowel sounds, soft, nontender Extremities- no calf tenderness Neuro- Alert, awake, PERRL, EOMI; move all extremities Skin- warm & dry Discharge Data Allergies Allergy/AdvReac Type Severity Reaction Status Date / Time No Known Allergies Allergy Verified 05/10/21 13:25 Consultations 05/10/21 13:15 ED Decision to Admit Stat 05/10/21 13:31 Consult [employer] Routine Ordered Studies 05/10/21 11:27 CT cervical spine wo con Stat CT head/brain wo con Stat 05/10/21 11:28 US point of care ultrasound Stat 05/10/21 11:42 CT abd pelvis wo con Stat CT cervical spine wo con CLINICAL HISTORY: 65 years-old Male with found down ams. Acute neck injury status post fall COMPARISON: Head CT of same day.. TECHNIQUE: Multiple axial CT images of the cervical spine were obtained without contrast. A dose lowering technique was utilized adhering to the principles of ALARA. FINDINGS: Mild mid cervical dextroscoliosis. Multilevel intervertebral disc space narrowing, severe at C6 or C7. 3 mm anterolisthesis C4 on C5 and C7 on T1 is likely secondary to chronic facet arthrosis. There is severe multilevel facet arthrosis with degenerative bony fusion of the right C2-C3 facets. Multilevel neural foraminal narrowing. No acute fracture or subluxation. Lung apices are clear. Calcified plaque of the carotid bulbs. No prevertebral edema. IMPRESSION: No acute cervical spine fracture or subluxation. ACT 112: Negative or not required by law. The above report was generated using voice recognition software. It may contain grammatical, syntax or spelling errors. Electronically signed by: Luigi Corcoran M.D. 05/10/2021 12:08 PM Dictated:05/10/21 120 Transcribed: 05/10/21 120 SINGLE VIEW CHEST CLINICAL HISTORY: Fall. FINDINGS: An AP, portable, supine chest radiographs are obtained. No prior studies are available for comparison at the time of dictation. The cardiomediastinal silhouette is unremarkable. Pneumomediastinum is observed. Bibasilar atelectasis is noted. No airspace consolidation or large pleural effusion is identified. No definite pneumothorax is seen. There are age indeterminant left-sided rib fractures which may be acute. IMPRESSION: 1. There is pneumomediastinum. 2. No definite pneumothorax is seen. 3. Age-indeterminate left-sided rib fractures may be acute. 4. No airspace consolidation or large pleural effusion is identified. ACT 112: Negative or not required by law. Electronically signed by: Zi Guido M.D. 05/10/2021 11:55 AM Dictated:05/10/21 1152 Transcribed: 05/10/[address] head/brain wo con CLINICAL HISTORY: 65 years-old Male with found down ams. Acutely altered mental status with fall TECHNIQUE: Multiple axial CT images of the head were obtained without contrast. A dose lowering technique was utilized adhering to the principles of ALARA. CT DOSE: 1780.74 mGycm COMPARISON: CT cervical spine of same day FINDINGS: Motion degraded exam. No acute intracranial hemorrhage, midline shift, intracranial mass, hydrocephalus, territorial ischemia or abnormal extra-axial collection. The lucent changes of the brain parenchyma. The calvarium is intact. The paranasal sinuses, mastoid air cells, and middle ear cavities are clear. IMPRESSION: Motion degraded exam. No acute intracranial abnormality or calvarial fracture. ACT 112: Negative or not required by law. The above report was generated using voice recognition software. It may contain grammatical, syntax or spelling errors. Electronically signed by: Luigi Corcoran M.D. 05/10/2021 12:04 PM Dictated:05/10/21 1201 Transcribed: 05/10/21 1201 XR pelvis 1-2V routine HISTORY: 65 years-old Male found down ams acute pelvic pain status post fall COMPARISON: None TECHNIQUE: Portable AP view of the pelvis FINDINGS: Mild to moderate osteoarthritis of the hips. No acute fracture, dislocation or avascular necrosis. Vascular calcifications. Degenerative changes of the imaged lumbar spine. IMPRESSION: No acute fracture. ACT 112: Negative or not required by law. The above report was generated using voice recognition software. It may contain grammatical, syntax or spelling errors. Electronically signed by: Luigi Corcoran M.D. 05/10/2021 11:56 AM Dictated:05/10/21 1155 Transcribed: 05/10/211154 ABDOMEN AND PELVIS CT WITHOUT CONTRAST CT DOSE: 458.44 mGycm HISTORY: Acute abdominal trauma. The patient was found down and has acutely altered mental status. found down ams TECHNIQUE: Multiaxial CT images of the abdomen and pelvis were performed without contrast. A dose lowering technique was utilized adhering to the principles of ALARA. COMPARISON STUDY: Chest radiograph of same day FINDINGS: Nondependent mild bibasilar groundglass densities of the lower lobes. Limited study secondary to upper extremity positioning, lack of significant intra- abdominal fat and lack of contrast. Artifact from telemetry leads also limits the study. The unenhanced spleen,, pancreas, adrenal glands and gallbladder are unremarkable. There are several hepatic cysts measuring up to 11 mm. Subcentimeter hepatic hypodensities are too small to characterize. There are least 3 nonobstructing calculi of the right kidney which measure up to 4 mm. 2 mm calculus of the inferior pole left kidney. No hydronephrosis or ureteral calculi identified. Mild to moderate circumferential wall thickening of the urinary bladder with prostamegaly. Atherosclerosis of the aorta. No adenopathy identified. Healing subacute appearing minimally displaced fracture of the anterolateral left seventh and eighth ribs. IMPRESSION: 1. Limited exam as above. 2. Nondependent bibasilar groundglass densities are suspicious for an infectious or inflammatory pneumonitis. Atelectasis considered less likely. 3. Nonobstructing bilateral nephrolithiasis. 4. Healing subacute fractures of the anterolateral left seventh and eighth ribs. 5. Prostamegaly with suggested chronic bladder outlet obstruction. 6. Additional findings as above. ACT 112: Negative or not required by law. The above report was generated using voice recognition software. It may contain grammatical, syntax or spelling errors. Electronically signed by: Luigi Corcoran M.D. 05/10/2021 12:41 PM Dictated:05/10/21 1231 Transcribed: 05/10/21 1231 XR chest 1V portable HISTORY: Follow up possible pneumomediastinum. COMPARISON: Chest 05/10/2021. FINDINGS: No pneumothorax. No pleural fusions. No pneumomediastinum identified. The heart is top normal in size. This mildly tortuous thoracic aorta. Subacute left-sided rib fractures are again noted. The upper lung zones are clear. A few bibasilar densities favor subsegmental atelectasis. No evidence for pulmonary edema. IMPRESSION: 1. No pneumothorax or pneumomediastinum. 2. Subacute left-sided rib fractures are again noted. ACT 112: Negative or not required by law. Electronically signed by: Helio Bhardwaj M.D. 05/10/2021 5:23 PM Dictated:05/10/211719 Transcribed: 05/10/211719 SINGLE VIEW CHEST CLINICAL HISTORY: Pneumomediastinum Covid. FINDINGS: An AP, portable, upright chest radiograph is compared to study dated 05/10/2021. Correlation is made with abdominal CT dated 05/10/2021. The heart is mildly enlarged. The pulmonary vasculature is noncongested. There mild left basilar opacities. No large pleural effusion or pneumothorax is seen. The skeletal structures are osteopenic. Subacute left-sided rib fractures are again noted. IMPRESSION: 1. No pneumothorax or pneumomediastinum. 2. Mild left basilar opacities are unchanged. ACT 112: Negative or not required by law. Electronically signed by: Zi Guido M.D. 05/11/2021 7:52 AM Dictated:05/11/21 0749 Transcribed: 05/11/21 0749 Diabetes Follow up Diabetes Follow-up Needed for HgbA1c >9% Hospital Course (1) Admitted to intensive care unit: (2) DKA (diabetic ketoacidosis): (3) Metabolic acidosis: (4) CODY (acute kidney injury): (5) Hypothermia: (6) Pancreatitis: (7) COVID: This is a critically ill 65-year-old male known past medical history of noninsulin-dependent T2DM alcohol abuse tobacco abuse who presented to ED after being found on floor by girlfriend unresponsive. Unknown duration down, last known well prior to girlfriend going to work at approximately 5:30 PM last evening. Diabetic Ketoacidosis Known T2DM, noncompliant Metabolic acidosis Hypothermia Mostly due to medication noncompliance was admitted in the ICU. Insulin gtt per DKA protocol Most recent hemoglobin A1c 15.3 on 05/11/21 Closed Anion gap Pharmacy on board for glycemic management Recommended to consider triple therapy insulin insulin drip was discontinued and transition to basal insulin Continue monitor closely CODY Mostly due to dehydration Creatinine on admission 3.08 with baseline creatinine 1 Received IV fluid creatinine 0.86 today Continue monitor BMP Electrolyte imbalance Potassium 3.1 today K replaced Today continue monitor BMP Elevated Lipase/Pancreatitis lipase 7153, CT a/p w/o evidence of pancreatitis, no evidence of pain to palpation of abdomen continue with fluid resuscitation Lipase trending down 3739 Denies any abdominal pain Sars COV2 + pt w/o resp sx per family, unvaccinated does not meet criteria for remdesivir given renal fxn No dexamethasone since pt is saturated well on RA CT a/p w/ evidence of dependent opacities Alcohol abuse We will change to p.o. thiamine and folic acid IV thiamine and folic acid until able to tolerate PO Monitor closely for sign of alcohol withdrawal and DT Counseling on alcohol cessation Tobacco abuse uses smokeless tobacco and cigarettes Counseling on smoking cessation Subacute fracture of L 7th and 8th rib noted on imaging, monitor continue incentive spirometry DVT ppx: SQ Heparin FULL CODE PCP: Cindi Ca PA-C Family would like daily updates on patient status Maricarmen Artis (Life Partner) [phone] Vincent Krueger (Brother) [phone] Total Time Total Time Spent Total Time Spent (In Minutes): 35 minutes Discharge Plan Discharge Items Patient Disposition: Home - Self-Care Reason For Visit: altered mental status Discharge Diagnosis: Diabetic Ketoacidosis Known T2DM, noncompliant Acute kidney injury Electrolyte imbalance Elevated Lipase/Pancreatitis COVID 19 Alcohol abuse Subacute fracture of Left side 7th and 8th rib Activity: Resume your previous activity Non-emergency contact: Primary Care Provider Call non-emergency contact if: you have any medication questions Follow-up/Referrals: PCP,NO [Primary Care Provider] - Diet: Carb Consistent or DM2 Addtl Attending Provider Instructions: Follow up with your primary care provider within 1 week Continue monitor your blood sugar and bring you blood sugar log at your next appointment with your provider Continue Lantus 25 units daily ( Your provider will continue to titrate it to achieve blood sugar goal) Metformin changed to 1000mg in the morning and 500mg at night for 1 week, then 1000 if tolerates Glipizide discontinued Patient was advised to follow a healthy diabetes diet and limited concentrated sweet intake Counseling on smoking and alcohol cessation Continue to wear your mask and practice social distance Fall precaution Home Isolation COVID-19 Instructions The following information about Home Isolation is from the CDC Website: https://www.cdc.gov/coronavirus/2019-ncov/hcp/xliavoxj-atlwvpw-eodcvj.html Stay home except to get medical care People who are mildly ill with COVID-19 are able to isolate at home during their illness. You should restrict activities outside your home, except for getting medical care. Do not go to work, school, or public areas. Avoid using public transportation, ride-sharing, or taxis. Separate yourself from other people and animals in your home People: As much as possible, you should stay in a specific room and away from other people in your home. Also, you should use a separate bathroom, if available. Animals: You should restrict contact with pets and other animals while you are sick with COVID-19, just like you would around other people. Although there have not been reports of pets or other animals becoming sick with COVID-19, it is still recommended that people sick with COVID-19 limit contact with animals until more information is known about the virus. When possible, have another member of your household care for your animals while you are sick. If you are sick with COVID-19, avoid contact with your pet, including petting, snuggling, being kissed or licked, and sharing food. If you must care for your pet or be around animals while you are sick, wash your hands before and after you interact with pets and wear a face mask. Call ahead before visiting your doctor If you have a medical appointment, call the healthcare provider and tell them that you have or may have COVID-19. This will help the healthcare providers office take steps to keep other people from getting infected or exposed. Wear a face mask You should wear a face mask when you are around other people (e.g., sharing a room or vehicle) or pets and before you enter a healthcare providers office. If you are not able to wear a face mask (for example, because it causes trouble breathing), then people who live with you should not stay in the same room with you, or they should wear a face mask if they enter your room. Cover your coughs and sneezes Cover your mouth and nose with a tissue when you cough or sneeze. Throw used tissues in a lined trash can. Immediately wash your hands with soap and water for at least 20 seconds or, if soap and water are not available, clean your hands with an alcohol-based hand collar baster that contains at least 60% alcohol. Clean your hands often Wash your hands often with soap and water for at least 20 seconds, especially after blowing your nose, coughing, or sneezing; going to the bathroom; and before eating or preparing food. If soap and water are not readily available, use an alcohol-based hand collar baster with at least 60% alcohol, covering all surfaces of your hands and rubbing them together until they feel dry. Soap and water are the best option if hands are visibly dirty. Avoid touching your eyes, nose, and mouth with unwashed hands. Avoid sharing personal household items You should not share dishes, drinking glasses, cups, eating utensils, towels, or bedding with other people or pets in your home. After using these items, they should be washed thoroughly with soap and water. Clean all high-touch surfaces everyday High touch surfaces include counters, tabletops, doorknobs, bathroom fixtures, toilets, phones, keyboards, tablets, and bedside tables. Also, clean any surfaces that may have blood, stool, or body fluids on them. Use a household cleaning spray or wipe, according to the label instructions. Labels contain instructions for safe and effective use of the cleaning product including precautions you should take when applying the product, such as wearing gloves and making sure you have good ventilation during use of the product. Monitor your symptoms Seek prompt medical attention if your illness is worsening (e.g., difficulty breathing).Beforeseeking care, call your healthcare provider and tell them that you have, or are being evaluated for, COVID-19. Put on a face mask before you enter the facility. These steps will help the healthcare providers office to keep other people in the office or waiting room from getting infected or exposed. Ask your healthcare provider to call the local or state health department. Persons who are placed under active monitoring or facilitated self- monitoring should follow instructions provided by their local health department or occupational health professionals, as appropriate. When working with your local health department check their available hours. If you have a medical emergency and need to call 911, notify the dispatch personnel that you have, or are being evaluated for COVID-19. If possible, put on a face mask before emergency medical services arrive. Discontinuing home isolation Patients with confirmed COVID-19 should remain under home isolation precautions until the risk of secondary transmission to others is thought to be low. The decision to discontinue home isolation precautions should be made on a poiw-cw-kvir basis, in consultation with healthcare providers and state and local health departments. Coronavirus disease 2019 (COVID-19) is a virus that causes a respiratory illness. It is caused by a coronavirus called 2019 novel coronavirus (2019- nCoV). There are many types of coronavirus. Coronaviruses are a very common cause of bronchitis. They may sometimes cause lung infection(pneumonia). Symptoms can range from mild to severe respiratory illness. These viruses are also foundin some animals. COVID-19 was first found in people in [facility], in late 2019. In 2020, several cases of COVID-19 have been confirmed in the [place] Public health officials are working to find the source. How the virus spreads is not yet fully known. It may be spread through droplets of fluid that a person coughs or sneezes into the air. It may be spread if you touch a surface with virus on it, such as a handle or object, and then touch your mouth. What are the symptoms of COVID-19? Some people have no symptoms or mild symptoms. Symptoms may appear 2 to 14 days after contact with the virus. Symptoms can include: Fever Coughing Trouble breathing What are possible complications from COVID-19? In many cases, this virus can cause infection (pneumonia) in both lungs. In some cases, this can cause . How is COVID-19 diagnosed? Your healthcare provider will ask about your symptoms. He or she will also ask about your recent travel and contact with sick people. Testing for the virus is only done through the CDC. If yourhealthcare provider thinks you may have COVID- 19, he or she will work with your local health department and the CDC on testing. Follow all instructions from your healthcare provider. COVID-19 is diagnosed by: Nasal and throat swab. A cotton-tipped swab is wiped inside your nose or throat. This is done to check for viruses in your nasal mucus. Sputum culture. A small sample of mucus coughed from your lungs (sputum) is collected if you have a cough. It is checked for the virus. How is COVID-19 treated? There is currently no medicine to treat the virus. Treatment is done to help your body while it fights the virus. This is known as supportive care. Supportive care may include: Pain medicine. These include acetaminophen and ibuprofen. They are used to help ease pain and reduce fever. Bed rest. This helps your body fight the illness. For severe illness, you may need to stay in the hospital. Care during severe illness may include: IV (intravenous) fluids.These are given through a vein to help keep your body hydrated. Oxygen. Supplemental oxygen or ventilation with a breathing machine (ventilator) may be given. This is done to keep enough oxygen in your body. Are you at risk for COVID-19? If youve been to a place where people have been sick with this virus, you are at risk for infection. You are at risk if you: Recently traveled to an affected area Had contact with a sick person who recently traveled to this area Had contact with a person who was diagnosed with COVID-19 How can COVID-19 be prevented? There is no vaccine yet. The best prevention is to not have contact with the virus. The CDC advises that people should not travel to areas where there are COVID-19 outbreaks right now for any reason that is not urgent. To help prevent spreading the infection, wash your hands often, or use an alcohol-basedhand collar baster. If you are in an area with COVID-19: Wash your hands often. Or use an alcohol-based hand collar baster often. Only touch your eyes, nose, or mouth with clean hands. Dont have contact with people who are sick. Follow local instructions about being in public. For example, you may be told to not use public transport for a period of time. Stay away from markets that have live or animals. Wash your hands after touching any animals. Don't touch animals that may be sick. Dont share eating or drinking tools with sick people. Dont kiss someone who is sick. Clean surfaces often with disinfectant. If you were in an area with COVID-19 in the last 14 days: Call your healthcare provider. He or she can talk with local health staff to see what action may be needed. Follow all instructions from your provider. Take your temperature every morning and evening for at least 14 days. This is to check for fever. Keep a record of the readings. Keep watch for symptoms of the virus. Tell your provider right away if you have symptoms. If you were in an area with COVID-19 and have a fever or other symptoms: Dont panic. Keep in mind that other illnesses can cause similar symptoms. Stay away from work, school, and public places. Limit physical contact with family members. Don't kiss anyone or share eating or drinking utensils. Clean surfaces you touch with disinfectant. This is to help prevent the virus from spreading. Call your healthcare provider. Explain that you have been exposed to COVID-19 and have symptoms. Do this before going to any hospital. Wait for instructions. Keep in mind that healthcare staff may wear protective equipment such as masks, gowns, gloves, and eye protection. You may be put in a separate room. This is to prevent the possible virus from spreading. Tell the healthcare staff about recent travel. This includes local travel on public transport. Staff may need to find other people you have been in contact with. Follow all instructions the healthcare staff give you. If you have been diagnosed with COVID-19 Follow all instructions from your healthcare provider. Dont leave your home, except to get medical care. Call your healthcare providers office before going. They can prepare and give you instructions. This will help prevent the virus from spreading. Dont go to work, school, or public areas. Dont use public transport or taxis. Stay away from other people in your home. Have them wear face masks around you. Dont share household items or food. Wear a face mask if you can. This includes at home or in a medical facility. Cover your face with a tissue when you cough or sneeze. Throw the tissue away. Wash your hands. Wash your hands often. Caregivers should: Follow all instructions from healthcare staff. Wear a face mask and protective clothing as advised. Wash hands often. Keep track of the sick persons symptoms. Clean surfaces, fabrics, and laundry thoroughly. Keep other people away from the sick person. When to call your healthcare provider Call your healthcare provider: If youve recently traveled and have symptoms If you have been diagnosed with COVID-19 and your symptoms are worse To learn more To find out more about COVID-19, visit the CDC website at www.cdc.gov/coronavirus/2019-ncov/index.html. 3025-9289 [employer]. [address] [place] [address], [place] [address]. All rights reserved. This information is not intended as a substitute for professional medical care. Always follow your healthcare professional's instructions. This information has been adapted from [employer] Pending Studies at Discharge: No Stand-Alone Forms: My [facility], Smoking Cessation Medications and DC Order Prescriptions: New (DME) pen needle, diabetic [Comfort EZ Pen Molino] 32 gauge x 5/32" needle See Rx Instructions .Route Qty: 100 RF: 0 Lantus Solostar U-100 Insulin 100 unit/mL (3 mL) insulin pen 25 unit subcut QAM 30 Days Qty: 7.5 RF: 0 Continued atorvastatin 40 mg tablet 40 mg PO DAILY RF: 0 Changed metformin 500 mg tablet extended release 24 hr 500 mg PO UD Qty: 60 RF: 0 Discontinued glipizide 5 mg tablet extended release 24hr 5 mg PO DAILY RF: 0 Discharge Orders: Discharge Order (Routine); Ordered 05/15/21 Ordered By: Heather Velez Admission Data Admit Date/Time: 05/10/21 13:31 Attending Provider: Heather Velez Admit Provider: Jennifer Rinaldi Primary Care Provider: PCP,NO Other Providers: Jennifer Rinaldi ; Aleksandar Alves Other Interventions: Discharge Summary Assessment (RN) Last Done: 05/15/21 11:16
== END 2021-05-15 15:45 | disposition home or self-care (01) | DRG 637 ==
LOC: ED 11:23 → SUATTDRO 13:31 → 1E 13:31 → 2S 05-11 20:20 → 2W 05-14 23:50